=== PATIENT | male | born 1955 | race Caucasian/White ===

== ENCOUNTER → 2019-11-11 | Outpatient (CLI) | payer OTHER | END | disposition home or self-care (01) | LOC: LABWHC1 09:05 | PROVIDERS: ATTEND Internal Medicine | DX: R50.9 Fever, unspecified (principal); R19.7 Diarrhea, unspecified; R52 Pain, unspecified; Z11.59 Encounter for screening for other viral diseases | CPT/HCPCS: U0003; C9803 ==

== ENCOUNTER 2021-06-19 10:33 | Inpatient (IN) | payer MEDICARE ==
[~2021-06-19 10:33] MED LIST: ALPRAZolam 0.25 MG TAB PO PRN; ALPRAZolam 0.5 MG TAB PO PRN; ASPIRIN 325 MG TAB PO ONE; ATORVASTATIN 80 MG TAB PO ONE; NITROGLYCERIN SL TABS 0.4 MG TAB SUBLINGUAL PRN
[2021-06-19] MEDS ORDERED: SODIUM CHLORIDE 0.9% 1,000 ML IV ONE (10:46)
[2021-06-19] MEDS ORDERED: LIDOCAINE 1% INJ 10MG/ML (20 ML MDV) ONE (12:05)
[2021-06-19] MEDS ORDERED: VERAPAMIL 2.5 MG/ML 2 ML AMP ONE (12:05)
[2021-06-19] MEDS ORDERED: HEPARIN SODIUM 1,000 UN/ML (10ML VL) ONE (12:20)
[2021-06-19] MEDS ORDERED: MIDAZOLAM 2 MG/2 ML VIAL IVP ONE (12:29)
[2021-06-19] MEDS ORDERED: LIDOCAINE 1% INJ 10MG/ML (10 ML MDV) SQ ONE (12:30)
[2021-06-19] MEDS ORDERED: VERAPAMIL SYRINGE (5 MG/10 ML) INTRAARTER ONE (12:31)
[2021-06-19] MEDS ORDERED: HEPARIN SODIUM 1,000 UN/ML (10ML VL) IV ONE (12:32)
[2021-06-19] MEDS ORDERED: IOPAMIDOL-370 125ML BTL INJ ONE (12:42)
[2021-06-19] MEDS ORDERED: FUROSEMIDE 20 MG TAB PO PRN (12:49)
[2021-06-19] MEDS ORDERED: BACLOFEN 10 MG TAB PO PRN (12:49)
[2021-06-19] MEDS ORDERED: RX INFO: IV CONTRAST WAS GIVEN 1 EACH MISC MISCELLANE PRN (12:50)
--- NOTE | 2021-06-19 12:50 | P.PCN ---
Date of Procedure: 06/19/21 Operative Findings: CARDIAC CATHETERIZATION PERFORMING PHYSICIAN: Suman Keane MD, RPVI PROCEDURE PERFORMED: 1. Selective right and left coronary angiogram 2. Left heart catheterization INDICATION: This is a 65-year-old gentleman with CAD and prior stenting of the LAD and RCA to have intermittent episodes of chest discomfort. He underwent myocardial perfusion imaging and that revealed reversible defect involving the basal lateral wall of the LV rate in the light of that a heart catheterization was advised COMPLICATION: None APPROACH: Right radial artery LEVEL OF SEDATION: Moderate with a sedation length of 14 minutes PROCEDURE DESCRIPTION: After obtaining an informed consent, the patient was brought to cardiac mill laborer. Local anesthesia was performed using lidocaine subcutaneously. The right radial artery was cannulated using Seldinger technique, the guidewire passed easily, following that we advanced a 5-Filipino sheath dilator assembly, the wire and dilator were removed and sheath was flushed. Following that, 2 mg of verapamil along with 5000 unit heparin were given. Selective right and left coronary angiogram using a 6-Filipino JR4 and JL 3.5 catheters. Following that we did left heart catheterization using 6-Filipino pigtail catheter. The procedure was completed there was no complication. SELECTIVE CORONARY ANGIOGRAM: The right coronary artery: Is a large caliber vessel and a dominant vessel. The RCA is heavily calcified. The mid RCA stented and the stent is patent. The proximal RCA has a tubular lesion appeared to be extremely calcified and eccentric in the range of 70-80%. The RCA distally bifurcates into PDA and PLV branches and both appeared to have mild diffuse disease Left main: Appeared to have mild disease only. Bifurcates into a small left circumflex and left anterior descending artery The left circumflex: Is a small-caliber vessel. Its and on dominant vessel. The left circumflex proximally gives rises to a large OM branch which appeared to be angiographically normal. The left anterior descending artery: Is a large caliber vessel. The LAD proximally appeared to have mild disease only. The LAD proximally is a stented and the stent appeared to be patent. The LAD proximally gives rise to a large diagonal branch which has an ostial lesion appeared to be in the range of 50%. The mid and distal LAD appeared to be angiographically normal. HEMODYNAMICS: The LVEDP was about 12 mmHg without significant gradient across aortic valve CONCLUSION: 1. Calcified right and left coronary system 2. Patent stent in the proximal left anterior descending artery 3. Severe disease involving the proximal RCA. The mid RCA stent appeared to be patent POSTPROCEDURE MANAGEMENT: Atherectomy and STAVE BLOCK ROLLER with stenting of the RCA to be performed in the next 24 hours
[2021-06-19] MEDS: SODIUM CHLORIDE 0.9% 1,000 ML in EMPTY BAG 1 BAG IV SCH ×3 (15:52→21:31)
[2021-06-19] MEDS: SODIUM CHLORIDE 0.9% 1,000 ML IV SCH (16:27)
[2021-06-19] MEDS: MAGNESIUM OXIDE 400 MG TAB PO SCH (21:25)
[2021-06-19] MEDS: VALSARTAN 80 MG TAB PO SCH (21:31)
[2021-06-20] MEDS: SODIUM CHLORIDE 0.9% 1,000 ML IV SCH (04:54)
[2021-06-20] MEDS: SODIUM CHLORIDE 0.9% 1,000 ML in EMPTY BAG 1 BAG IV SCH ×3 (05:15→16:08)
[2021-06-20] MEDS: LEVOTHYROXINE 100 MCG TAB PO SCH (05:15)
[2021-06-20] MEDS: LEVOTHYROXINE 75 MCG TAB PO SCH (05:16)
[2021-06-20] MEDS ORDERED: HEPARIN SODIUM,PORCINE 2,500 UNIT in SODIUM CHLORIDE 0.9% 250 ML IRRIGATION PRN (07:00)
[2021-06-20] MEDS ORDERED: HEPARIN SODIUM,PORCINE 10,000 UNIT in SODIUM CHLORIDE 0.9% 1,000 ML IRRIGATION PRN (07:00)
[2021-06-20 07:03] LABS: Basophils # (A) 0.1 k/uL (0-0.2); Basophils % (A) 1 %; Eosinophils # (A) 0.5 k/uL (0-0.7); Eosinophils % (A) 6 %; HCT 40.5 % (39.0-53.0); HGB 13.1 gm/dL (13.0-17.5); Lymphocytes # (A) 2.2 k/uL (1.0-4.8); Lymphocytes % (A) 28 %; MCHC 32.3 g/dL (31.0-37.0); MCV 95.9 fL (80.0-100.0); Mean Platelet Volume 6.8; Monocytes # (A) 0.6 k/uL (0-1.0); Monocytes % (A) 8 %; Neutrophils # (A) 4.4 k/uL (1.3-7.7); Neutrophils % (A) 55 %; Platelet Count 350 k/uL (150-450); RBC 4.22 m/uL (4.30-5.90); RDW 13.7 % (11.5-15.5); WBC 7.9 k/uL (3.8-10.6)
[2021-06-20 07:19] LABS: African American GFR (CKD) >90 (>60 ml/min/1.73 sqM); Anion Gap 6 mmol/L; Blood Urea Nitrogen 14 mg/dL (9-20); Calcium 9.2 mg/dL (8.4-10.2); Carbon Dioxide 26 mmol/L (22-30); Chloride 102 mmol/L (98-107); Glucose 112 mg/dL (74-99); Non-African American GFR(CKD) 79 (>60 ml/min/1.73 sqM); Potassium 4.9 mmol/L (3.5-5.1); Sodium 134 mmol/L (137-145)
[2021-06-20] MEDS: amLODIPine 10 MG TAB PO SCH (07:34)
[2021-06-20] MEDS: TAMSULOSIN 0.4 MG CAP.ER.24H PO SCH (07:34)
[2021-06-20] MEDS: METOPROLOL SUCCINATE (ER) 50 MG TAB.ER.24H PO SCH (07:34)
[2021-06-20] MEDS: hydroCHLOROthiazide 25 MG TAB PO SCH (07:34)
[2021-06-20] MEDS: NON FORMULARY DRUG (Buprenorphine Hcl/Naloxone Hcl [Suboxone 8 Mg-2 Mg Sl Film] 1 EACH Fil SUBLINGUAL SCH (07:34)
[2021-06-20] MEDS: ASPIRIN 325 MG TAB PO SCH (07:34)
[2021-06-20] MEDS ORDERED: VERAPAMIL 2.5 MG/ML 2 ML AMP ONE (10:12)
[2021-06-20] MEDS ORDERED: HEPARIN SODIUM 1,000 UN/ML (10ML VL) ONE (10:12)
[2021-06-20] MEDS ORDERED: LIDOCAINE 1% INJ 10MG/ML (20 ML MDV) ONE (10:12)
[2021-06-20] MEDS ORDERED: IV FLUID CONTINUATION 800 ML IV ONE (10:45)
[2021-06-20] MEDS ORDERED: MIDAZOLAM 2 MG/2 ML VIAL IVP ONE (10:50)
[2021-06-20] MEDS ORDERED: fentaNYL (PF) 50 MCG/ML 2 ML AMP ONE (10:51)
[2021-06-20] MEDS ORDERED: fentaNYL (PF) 50 MCG/ML 2 ML AMP IVP ONE (10:53)
[2021-06-20] MEDS: LIDOCAINE 1% INJ 10MG/ML (20 ML MDV) SQ ONE ×2 (10:54→10:58)
[2021-06-20] MEDS ORDERED: niCARdipine 25 MG/10 ML VIAL ONE (10:55)
[2021-06-20] MEDS ORDERED: VERAPAMIL SYRINGE (5 MG/10 ML) INTRAARTER ONE (10:58)
[2021-06-20] MEDS ORDERED: HEPARIN SODIUM 1,000 UN/ML (10ML VL) IVP ONE (11:02)
[2021-06-20] MEDS ORDERED: HYDROmorphone 1 MG/ML 1 ML SYRINGE ONE (11:10)
[2021-06-20] MEDS ORDERED: HYDROmorphone 1 MG/ML 1 ML SYRINGE IVP ONE (11:11)
[2021-06-20] MEDS: NITROGLYCERIN 1000MCG/10ML SYRINGE INTRACORON ONE ×2 (11:19→11:28)
[2021-06-20] MEDS: niCARdipine Syringe (1,000 mcg/10 mL) INTRACORON ONE ×2 (11:20→11:28)
[2021-06-20] MEDS ORDERED: PRASUGREL 10 MG TAB ONE ×2 (11:30)
[2021-06-20] MEDS ORDERED: PRASUGREL 10 MG TAB PO ONE (11:37)
[2021-06-20] MEDS ORDERED: IOPAMIDOL-370 125ML BTL INJ ONE (11:37)
[2021-06-20] MEDS ORDERED: ATROPINE SULFATE 0.1 MG/ML 10ML SYRINGE IV PRN (11:53)
[2021-06-20] MEDS ORDERED: RX INFO: IV CONTRAST WAS GIVEN 1 EACH MISC MISCELLANE PRN (11:53)
[2021-06-20] MEDS ORDERED: NITROGLYCERIN SL TABS 0.4 MG TAB SUBLINGUAL PRN (11:53)
[2021-06-20] MEDS ORDERED: ZOLPIDEM 5 MG TAB PO PRN (11:53)
[2021-06-20] MEDS ORDERED: MAG HYDROX/AL HYDROX/SIMETH 30 ML CUP PO PRN (11:53)
[2021-06-20] MEDS ORDERED: SODIUM CHLORIDE 0.9% 1,000 ML in EMPTY BAG 1 BAG IV SCH (12:00)
--- NOTE | 2021-06-20 12:04 | P.PCN ---
Date of Procedure: 06/20/21 Operative Findings: PERCUTANEOUS CORONARY INTERVENTION Performing physician Suman Keane M.D. Procedure Performed: 1. An atherectomy of the right coronary artery using the orbital atherectomy device 2. Successful stenting of the right coronary artery proximally using 4.0 x 26 mm Xience drug-eluting stent with an excellent angiographic results. 2. Placement of temporary pacemaker in the right ventricle Indication: Severe coronary artery disease involving the right coronary artery was extremely calcified and eccentric plaque was identified yesterday on a heart catheterization in this 65-year-old gentleman who is known to have CAD with prior stenting of the RCA and LAD was experiencing symptoms of chest discomfort concerning for angina Approach: Right femoral vein and the right radial artery Complications: None Level of Sedation: Moderate with a sedation length of 41 minute Procedure Discussion: Please refer to the diagnostic heart catheterization was performed yesterday. The right common femoral vein was cannulated using micropuncture technique, the micropuncture wire passed easily. Subsequently I advanced(venous pacemaker with the balloon. And her fluoroscopy guidance to the right ventricle apex. The pacer was set to be at 5 of AMP and 60 heart rate as a backup. Subsequently the right radial artery was cannulated using micropuncture technique, and a puncture wire passed easily then I placed a 6-Indian sheath in the right radial artery. I gave the patient 2 mg of verapamil I a. Anticoagulation was initiated using heparin and the patient was given 8000 use of heparin IV with continuous ACT monitoring throughout the case Subsequently I did engage the RCA using JR4 guiding catheter. The RCA initially was wired using long whisper wire. Subsequently I advanced a Viber wire as a tank wire and I advanced a Viber wire all the way to the distal right coronary artery subsequently the whisper wire was pulled out. After that I did atherectomy of the right coronary artery using the orbital atherectomy device with 3 runs and a low speed. After that balloon angioplasty was performed initially using 3.5 mm balloon. I deployed after that 4.0 x 26 [place] stent where the stent was positioned under fluoroscopy guidance and deployed under 16 desirae for 20 seconds. The following angiogram showed an excellent angiographic results and the procedure was completed without complication By the end the transvenous pacer was pulled out. Postprocedure Management: 1. Dual antiplatelet therapy 2. Aggressive cholesterol control 3. Risk factors modification
[2021-06-20] MEDS ORDERED: ATORVASTATIN 80 MG TAB PO SCH (21:00)
[2021-06-20] MEDS: VALSARTAN 80 MG TAB PO SCH (21:09)
[2021-06-20] MEDS: MAGNESIUM OXIDE 400 MG TAB PO SCH (21:09)
[2021-06-21 03:25] VITALS: TEMP 98.1
[2021-06-21] MEDS: SODIUM CHLORIDE 0.9% 1,000 ML in EMPTY BAG 1 BAG IV SCH (04:39)
[2021-06-21] MEDS: LEVOTHYROXINE 75 MCG TAB PO SCH (06:09)
[2021-06-21] MEDS: LEVOTHYROXINE 100 MCG TAB PO SCH (06:09)
[2021-06-21 06:59] VITALS: RESP 18
--- NOTE | 2021-06-21 08:19 | P.DS ---
Providers Date of admission: 06/21/21 07:58 Attending physician: Suman Keane Consults: 06/20/21 11:53 Consult Physician Routine Consulting Provider: [facility] Consult Reason/Comments: Post Interventional patient Do you want consulting provider notified?: Already Contacted Primary care physician: [facility] Course: Patient is a pleasant 65-year-old gentleman who underwent yesterday an atherectomy and stenting right coronary artery from right radial approach. He was seen this morning. The patient is asymptomatic from a cardiovascular standpoint. He is going to be discharged home on dual antiplatelet therapy and I'll follow- up with the patient next week Plan - Discharge Summary Discharge Rx Participant: No New Discharge Prescriptions: New Prasugrel [Effient] 10 mg PO DAILY #90 tab Continue Baclofen [Lioresal] 20 mg PO BID PRN PRN Reason: Muscle Spasm Atorvastatin [Lipitor] 80 mg PO HS #90 tab Aspirin 325 mg PO DAILY #30 tab Metoprolol Succinate (ER) [Toprol XL] 50 mg PO DAILY hydroCHLOROthiazide 25 mg PO DAILY Buprenorphine HCl/Naloxone HCl [Suboxone 8 mg-2 mg Sl Film] 1 each SL DAILY Tamsulosin [Flomax] 0.4 mg PO DAILY Magnesium Oxide 400 mg PO HS Valsartan [Diovan] 80 mg PO HS Furosemide [Lasix] 20 mg PO DAILY PRN PRN Reason: Edema amLODIPine [Norvasc] 10 mg PO DAILY Levothyroxine Sodium [Synthroid] 175 mcg PO DAILY Discharge Medication List Baclofen [Lioresal] 20 mg PO BID PRN 08/28/15 [History] Aspirin 325 mg PO DAILY #30 tab 08/30/15 [Rx] Atorvastatin [Lipitor] 80 mg PO HS #90 tab 08/30/15 [Rx] Buprenorphine HCl/Naloxone HCl [Suboxone 8 mg-2 mg Sl Film] 1 each SL DAILY 06/15/21 [History] Furosemide [Lasix] 20 mg PO DAILY PRN 06/15/21 [History] Levothyroxine Sodium [Synthroid] 175 mcg PO DAILY 06/15/21 [History] Magnesium Oxide 400 mg PO HS 06/15/21 [History] Metoprolol Succinate (ER) [Toprol XL] 50 mg PO DAILY 06/15/21 [History] Tamsulosin [Flomax] 0.4 mg PO DAILY 06/15/21 [History] Valsartan [Diovan] 80 mg PO HS 06/15/21 [History] amLODIPine [Norvasc] 10 mg PO DAILY 06/15/21 [History] hydroCHLOROthiazide 25 mg PO DAILY 06/15/21 [History] Prasugrel [Effient] 10 mg PO DAILY #90 tab 06/21/21 [Rx] Follow up Appointment(s)/Referral(s): Suman Keane MD [STAFF PHYSICIAN] - 06/26/21 4:15 pm (June 26 at 4:15 PM is follow up appointment at [facility].) Patient Instructions/Handouts: After Radial Heart Catheterization (GEN), Procedural Sedation (ED), Left Heart Catheterization (DC) Activity/Diet/Wound Care/Special Instructions: No driving today or tomorrow. Remove dressing tomorrow afternoon, ok to shower but no baths, pools, hot tubs, soaking wrist for five days. No need to apply dressing, ointments, powders to site. Leave open to the air. Avoid bending, flexing, pushing, pulling, lifting greater than 5 lbs for 5days. If puncture site bleeds, apply firm direct pressure and return to ER. Signs of infections IE: fever, rash, drainage from puncture site, swelling co ntact doctor for further orders/return to ER.
[2021-06-21 08:26] LABS: Basophils # (A) 0.1 k/uL (0-0.2); Basophils % (A) 1 %; Eosinophils # (A) 0.3 k/uL (0-0.7); Eosinophils % (A) 3 %; HCT 44.1 % (39.0-53.0); HGB 14.2 gm/dL (13.0-17.5); Lymphocytes # (A) 2.4 k/uL (1.0-4.8); Lymphocytes % (A) 24 %; MCHC 32.3 g/dL (31.0-37.0); MCV 96.2 fL (80.0-100.0); Mean Platelet Volume 6.6; Monocytes # (A) 0.6 k/uL (0-1.0); Monocytes % (A) 6 %; Neutrophils # (A) 6.3 k/uL (1.3-7.7); Neutrophils % (A) 63 %; Platelet Count 343 k/uL (150-450); RBC 4.59 m/uL (4.30-5.90); RDW 13.7 % (11.5-15.5)
[2021-06-21] MEDS: METOPROLOL SUCCINATE (ER) 50 MG TAB.ER.24H PO SCH (08:30)
[2021-06-21] MEDS: hydroCHLOROthiazide 25 MG TAB PO SCH (08:30)
[2021-06-21] MEDS: TAMSULOSIN 0.4 MG CAP.ER.24H PO SCH (08:30)
[2021-06-21] MEDS: ASPIRIN 325 MG TAB PO SCH (08:30)
[2021-06-21] MEDS: amLODIPine 10 MG TAB PO SCH (08:30)
[2021-06-21] MEDS: NON FORMULARY DRUG (Buprenorphine Hcl/Naloxone Hcl [Suboxone 8 Mg-2 Mg Sl Film] 1 EACH Fil SUBLINGUAL SCH (08:36)
[2021-06-21 08:37] VITALS: BP 129/78; PULSE 90
[2021-06-21 08:45] LABS: African American GFR (CKD) >90 (>60 ml/min/1.73 sqM); Anion Gap 8 mmol/L; Blood Urea Nitrogen 13 mg/dL (9-20); Calcium 9.8 mg/dL (8.4-10.2); Carbon Dioxide 26 mmol/L (22-30); Chloride 100 mmol/L (98-107); Glucose 117 mg/dL (74-99); Non-African American GFR(CKD) 79 (>60 ml/min/1.73 sqM); Potassium 4.8 mmol/L (3.5-5.1); Sodium 134 mmol/L (137-145)
[2021-06-21] MEDS ORDERED: PRASUGREL 10 MG TAB PO SCH (09:00)
[2021-06-21 10:39] VITALS: BMI 42.2
== END 2021-06-21 11:20 | disposition home or self-care (01) | DRG 247 ==
LOC: CATHCVL 10:33 → 6NMEDSUR 12:43 → CATHCVL 06-21 07:39 → 6NMEDSUR 06-21 07:58
PROVIDERS: ADMIT Internal Medicine Interventional Cardiology; ATTEND Internal Medicine Interventional Cardiology
PROC: 4A023N7 Measurement of Cardiac Sampling and Pressure, Left Heart, Percutaneous Approach (ICD-10-PCS; 2021-06-19)
PROC: B2111ZZ Fluoroscopy of Multiple Coronary Arteries using Low Osmolar Contrast (ICD-10-PCS; 2021-06-19)
PROC: 02C03Z7 Extirpation of Matter from Coronary Artery, One Artery, Orbital Atherectomy Technique, Percutaneous Approach (ICD-10-PCS; principal; 2021-06-20 07:30)
PROC: 5A1223Z Performance of Cardiac Pacing, Continuous (ICD-10-PCS; principal; 2021-06-20 07:30)
PROC: 027034Z Dilation of Coronary Artery, One Artery with Drug-eluting Intraluminal Device, Percutaneous Approach (ICD-10-PCS; principal; 2021-06-20 07:30)
DX: I25.10 Atherosclerotic heart disease of native coronary artery without angina pectoris (principal); Z68.41 Body mass index [BMI] 40.0-44.9, adult; E66.9 Obesity, unspecified; Z71.3 Dietary counseling and surveillance; I10 Essential (primary) hypertension; E78.5 Hyperlipidemia, unspecified; Z20.822 Contact with and (suspected) exposure to COVID-19; Z79.899 Other long term (current) drug therapy; Z95.5 Presence of coronary angioplasty implant and graft
CPT/HCPCS: 80048; 85025; 87635; 93458

== ENCOUNTER 2023-02-23 20:44 | Inpatient (IN) | payer MEDICARE, OTHER ==
[2023-02-23 21:40] LABS: Basophils % (A) 0 %; Eosinophils # (A) 0.1 k/uL (0-0.7); Eosinophils % (A) 1 %; HCT 46.1 % (39.0-53.0); HGB 15.4 gm/dL (13.0-17.5); Lymphocytes # (A) 2.3 k/uL (1.0-4.8); Lymphocytes % (A) 26 %; MCH 33.4 pg (25.0-35.0); MCHC 33.4 g/dL (31.0-37.0); MCV 100.2 fL (80.0-100.0); Macrocytosis Slight; Mean Platelet Volume 7.1; Monocytes # (A) 0.5 k/uL (0-1.0); Monocytes % (A) 6 %; Neutrophils # (A) 5.8 k/uL (1.3-7.7); Neutrophils % (A) 66 %; Platelet Count 313 k/uL (150-450); RBC 4.61 m/uL (4.30-5.90); RDW 14.1 % (11.5-15.5); WBC 8.8 k/uL (3.8-10.6)
--- NOTE | 2023-02-23 21:45 | ED ---
Chest Pain HPI - General Chief Complaint: Chest Pain Stated Complaint: Chest Pain Time Seen by Provider: 02/23/23 20:50 Source: patient, EMS Mode of arrival: EMS Limitations: no limitations - History of Present Illness Initial Comments: 67-year-old male with past medical history of coronary artery disease who presents to the emergency department from [facility] is a transfer. Patient began having chest pain after an altercation with police. Patient was taken into [facility]. First troponin was negative. EKG was normal. Patient transferred to our facility for further cardiac evaluation. Patient states that he continues to have chest pain. He was given 4 aspirin at the outside facility as well as a dose of Toradol. He does admit to 2 previous cardiac stents. He follows with Dr. Keane. Denies fevers chills or cough. No shortness of breath. Patient takes prausagrel however states that he has not had his medications in 3 days since he has been incarcerated. No other alleviating, precipitating or modifying factors - Related Data Home Medications Medication Instructions Recorded Confirmed Baclofen [Lioresal] 20 mg PO BID PRN 08/28/15 06/15/21 Buprenorphine HCl/Naloxone HCl 1 each SL DAILY 06/15/21 06/19/21 [Suboxone 8 mg-2 mg Sl Film] Furosemide [Lasix] 20 mg PO DAILY PRN 06/15/21 06/19/21 Levothyroxine Sodium [Synthroid] 175 mcg PO DAILY 06/15/21 06/19/21 Magnesium Oxide 400 mg PO HS 06/15/21 06/19/21 Metoprolol Succinate (ER) [Toprol 50 mg PO DAILY 06/15/21 06/19/21 XL] Tamsulosin [Flomax] 0.4 mg PO DAILY 06/15/21 06/19/21 Valsartan [Diovan] 80 mg PO HS 06/15/21 06/19/21 amLODIPine [Norvasc] 10 mg PO DAILY 06/15/21 06/19/21 hydroCHLOROthiazide 25 mg PO DAILY 06/15/21 06/19/21 Previous Rx's Medication Instructions Recorded Aspirin 325 mg PO DAILY #30 tab 08/30/15 Atorvastatin [Lipitor] 80 mg PO HS #90 tab 08/30/15 Prasugrel [Effient] 10 mg PO DAILY #90 tab 06/21/21 Allergies Allergy/AdvReac Type Severity Reaction Status Date / Time No Known Allergies Allergy Verified 02/23/23 20:54 Review of Systems ROS Statement: Those systems with pertinent positive or pertinent negative responses have been documented in the HPI. ROS Other: All systems not noted in ROS Statement are negative. 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 insomnia, History of Any Multi-Drug Resistant Organisms: MRSA Date of last positivie culture/infection: 2011 MDRO Source:: rt foot Past Surgical History: Back Surgery, Heart Catheterization With Stent, Orthopedic Surgery Additional Past Surgical History / Comment(s): left knee arthroscopy, picc line insertion since removed for ABX for MRSA, one cardiac stent Past Anesthesia/Blood Transfusion Reactions: No Reported Reaction Date of Last Stent Placement:: 08/29/15 Past Psychological History: No Psychological Hx Reported Smoking Status: Never smoker Past Alcohol Use History: None Reported Past Drug Use History: None Reported - Past Family History Father Family Medical History: Cancer Additional Family Medical History / Comment(s): Father of lung cancer at age 76 yrs. Mother Family Medical History: Myocardial Infarction ([place]) Additional Family Medical History / Comment(s): . Brother(s) Family Medical History: Cancer General Exam Limitations: no limitations General appearance: alert, in no apparent distress Head exam: Present: atraumatic, normocephalic, normal inspection Eye exam: Present: normal appearance, PERRL, EOMI. Absent: scleral icterus, conjunctival injection, periorbital swelling ENT exam: Present: normal exam, mucous membranes moist Neck exam: Present: normal inspection. Absent: tenderness, meningismus, lymphadenopathy Respiratory exam: Present: normal lung sounds bilaterally. Absent: respiratory distress, wheezes, rales, rhonchi, stridor Cardiovascular Exam: Present: regular rate, normal rhythm, normal heart sounds. Absent: systolic murmur, diastolic murmur, rubs, gallop, clicks GI/Abdominal exam: Present: soft, normal bowel sounds. Absent: distended, tenderness, guarding, rebound, rigid Extremities exam: Present: normal inspection, full ROM, normal capillary refill. Absent: tenderness, pedal edema, joint swelling, calf tenderness Back exam: Present: normal inspection Neurological exam: Present: alert, oriented X3, CN II-XII intact Psychiatric exam: Present: normal affect, normal mood Skin exam: Present: warm, dry, intact, normal color. Absent: rash Course Vital Signs 02/23/23 02/23/23 02/24/23 20:48 23:59 00:15 Temperature 97.8 F 97.8 F 97.6 F Pulse Rate 69 75 Pulse Rate [ 66 Pulse Oximetery ] Respiratory 20 20 16 Rate Blood Pressure 147/78 139/84 Blood Pressure 160/87 [Left Arm] O2 Sat by Pulse 99 97 96 Oximetry Chest Pain MDM - MDM Was pt. sent in by a medical professional or institution (, PA, PLACEMENT MANAGER, urgent care, hospital, or detention...) When possible be specific @ -[facility] Did you speak to anyone other than the patient for history (EMS, parent, family, police, friend...)? What history was obtained from this source @ -Spoke with transferring doc Did you review nursing and triage notes (agree or disagree)? Why? @ -I reviewed and agree with nursing and triage notes Were old charts reviewed (outside hosp., previous admission, EMS record, old EKG, old radiological studies, urgent care reports/EKG's, detention records)? Report findings @ -Reviewed records from [facility] Differential Diagnosis (chest pain, altered mental status, abdominal pain women, abdominal pain men, vaginal bleeding, weakness, fever, dyspnea, syncope, headache, dizziness, GI bleed, back pain, seizure, CVA, palpatations, mental health, musculoskeletal)? @ -Differential Chest Pain: Stable Angina, Unstable Angina, STEMI, NSTEMI Aortic Dissection, Pneumothorax, Musculoskeletal, Esophageal Spasm GERD, Cholecystitis, Pancreatitis, Zoster, this is not meant to be an all-inclusive list. EKG interpreted by me (3pts min.). @ -Yes and demonstrates sinus rhythm with a rate of 61. MI interval 165. QRS 104. QTC 411. No acute ST segment elevation or depression X-rays interpreted by me (1pt min.). @ -Yes and demonstrates no acute intrathoracic process CT interpreted by me (1pt min.). @ -None done U/S interpreted by me (1pt. min.). @ -None done What testing was considered but not performed or refused? (CT, X-rays, U/S, labs)? Why? @ -None What meds were considered but not given or refused? Why? @ -Nitro because patient refused Did you discuss the management of the patient with other professionals (professionals i.e. , PA, PLACEMENT MANAGER, lab, RT, psych nurse, social service liaison, beater engineer, teacher, strategic intelligence officer, case management director)? Give summary @ -Spoke with Dr. Verma who accepted admission Was smoking cessation discussed for >3mins.? @ -No Was critical care preformed (if so, how long)? @ -No Were there social determinants of health that impacted care today? How? (Homelessness, low income, unemployed, alcoholism, drug addiction, transportation, low edu. Level, literacy, decrease access to med. care, prison, rehab)? @ -Patient is incarcerated Was there de-escalation of care discussed even if they declined (Discuss DNR or withdrawal of care, Hospice)? DNR status @ -No What co-morbidities impacted this encounter? (DM, HTN, Smoking, COPD, CAD, Cancer, CVA, ARF, Chemo, Hep., AIDS, mental health diagnosis, sleep apnea, morbid obesity)? @ -Coronary artery disease Was patient admitted / discharged? Hospital course, mention meds given and route, prescriptions, significant lab abnormalities, going to OR and other pertinent info. @ -Upon arrival patient was placed into room 1. Thorough history and physical exam was performed. I did review records from [facility]. Repeat cardiac enzyme was performed and continues to be negative. Patient offered nitro however refused. Patient will be admitted for cardiac evaluation. He remains in stable condition and was taken to the floor Undiagnosed new problem with uncertain prognosis? @ -Yes Drug Therapy requiring intensive monitoring for toxicity (Heparin, Nitro, Insulin, Cardizem)? @ -No Were any procedures done? @ -No Diagnosis/symptom? @ -Acute chest pain, history of atherosclerotic coronary artery disease Acute, or Chronic, or Acute on Chronic? @ -Acute Uncomplicated (without systemic symptoms) or Complicated (systemic symptoms)? @ -Complicated Side effects of treatment? @ -No Exacerbation, Progression, or Severe Exacerbation? @ -No Poses a threat to life or bodily function? How? (Chest pain, [place], [place], pneumonia, PE, COPD, DKA, ARF, appy, cholecystitis, CVA, Diverticulitis, Homicidal, Suicidal, threat to staff... and all critical care pts) @ -Yes patient has active chest pain Disposition Clinical Impression: Chest pain Disposition: ADMITTED IP TO THIS HOSP Condition: Stable Is patient prescribed a controlled substance at d/c from ED?: No Time of Disposition: 22:52 Decision to Admit Reason: Admit from EC Decision Date: 02/23/23 Decision Time: 22:52
[2023-02-23 21:49] LABS: Prothrombin Time 10.9 sec (10.0-12.5)
--- NOTE | 2023-02-23 21:52 | XR ---
EXAMINATION TYPE: XR chest 2V DATE OF EXAM: 02/23/2023 9:48 PM CLINICAL INDICATION:Male, 67 years old with history of Chest Pain; [facility] COMPARISON: None TECHNIQUE: XR chest 2V Frontal and lateral views of the chest. FINDINGS: Lungs/Pleura: There is flattening of the diaphragm with increased lucency of the lungs. No evidence o f pneumothorax, pleural effusion or focal consolidation. Pulmonary vascularity: Unremarkable. Heart/mediastinum: Cardiomediastinal silhouette is unremarkable. Musculoskeletal: No acute osseous pathology. IMPRESSION: 1. No acute cardiopulmonary disease process. 2. COPD changes.
[2023-02-23 22:05] LABS: Partial Thromboplastin Time 21.1 sec (22.0-30.0)
[2023-02-23] MEDS ORDERED: NALOXONE 0.4 MG/ML 1 ML VIAL IV PRN (22:52)
[2023-02-23] MEDS ORDERED: ACETAMINOPHEN TAB 325 MG TAB PO PRN (22:52)
[2023-02-23 23:08] LABS: ALT 20 U/L (4-49); AST 31 U/L (17-59); African American GFR (CKD) >90 (>60 ml/min/1.73 sqM); Alkaline Phosphatase 57 U/L (38-126); Anion Gap 10 mmol/L; Blood Urea Nitrogen 10 mg/dL (9-20); Calcium 9.4 mg/dL (8.4-10.2); Carbon Dioxide 25 mmol/L (22-30); Chloride 101 mmol/L (98-107); Glucose 86 mg/dL (74-99); Magnesium 1.7 mg/dL (1.6-2.3); Non-African American GFR(CKD) 85 (>60 ml/min/1.73 sqM); Sodium 136 mmol/L (137-145); Total Bilirubin 0.8 mg/dL (0.2-1.3); Total Protein 7.5 g/dL (6.3-8.2)
[2023-02-24 03:47] LABS: Basophils % (A) 0 %; Eosinophils # (A) 0.1 k/uL (0-0.7); Eosinophils % (A) 1 %; HCT 45.5 % (39.0-53.0); HGB 15.1 gm/dL (13.0-17.5); Lymphocytes # (A) 2.4 k/uL (1.0-4.8); Lymphocytes % (A) 30 %; MCH 32.6 pg (25.0-35.0); MCV 98.8 fL (80.0-100.0); Mean Platelet Volume 6.9; Monocytes # (A) 0.5 k/uL (0-1.0); Monocytes % (A) 6 %; Neutrophils # (A) 4.9 k/uL (1.3-7.7); Neutrophils % (A) 60 %; Platelet Count 293 k/uL (150-450); RBC 4.61 m/uL (4.30-5.90); RDW 14.2 % (11.5-15.5); WBC 8.2 k/uL (3.8-10.6)
[2023-02-24 04:40] LABS: African American GFR (CKD) >90 (>60 ml/min/1.73 sqM); Anion Gap 8 mmol/L; Blood Urea Nitrogen 11 mg/dL (9-20); Calcium 9.2 mg/dL (8.4-10.2); Carbon Dioxide 25 mmol/L (22-30); Chloride 103 mmol/L (98-107); Glucose 86 mg/dL (74-99); Non-African American GFR(CKD) >90 (>60 ml/min/1.73 sqM); Potassium 3.4 mmol/L (3.5-5.1); Sodium 136 mmol/L (137-145)
[2023-02-24] MEDS ORDERED: AMINOPHYLLINE 500 MG/20 ML VIAL IV PRN (07:20)
[2023-02-24] MEDS ORDERED: CAFFEINE CITRATE 60 MG/3 ML VIAL IV PRN (07:20)
[2023-02-24] MEDS ORDERED: REGADENOSON 0.4 MG/5 ML SYRINGE IV PRN (07:20)
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
--- NOTE | 2023-02-24 11:14 | CA ---
Lexiscan Nuclear Stress Test Report Name: Jose Valentine Exam Date: 02/24/2023 10:32 Exam Location: [facility] Stress Ht (in): 72 Wt (lb): 240 BSA: 2.30 Ordering Phys: Ricardo Zavala MD Referring Phys: RA, Technologist: Jorge L Walker Age: 67 Gender: M : 1955 Procedure CPT: Indications: Reflex order-Stress test ICD-10 Codes: Patient History: Medications: SEE CHART Meds past 24 hrs: Pretest Chest Pain: STRESS TEST Lexiscan Protocol Exercise Duration (min:sec): 02:[address] Depressions (mm): Angina Score: Lucia Score: Resting HR (bpm): 79 Peak HR (bpm): 106 Resting BP (mmHg): 190 / 86 Peak BP (mmHg): 213 / 84 MPHR: 152 Target HR: 129 % MPHR: 70 METS: 1.0 Total Dose: Peak Dose: Atropine: Double Product: 76533 BP Response: Stress Termination: PROTOCOL COMPLETE Stress Symptoms: NO SYMPTOMS Stress Summary: ECG ANALYSIS Resting ECG: Sinus rhythm. Normal conduction. No arrhythmias. Normal repolarization. Stress ECG: No ECG changes from baseline with Lexiscan infusion. Ventricular premature contraction. CONCLUSIONS No ECG evidence of ischemia with Lexiscan infusion. Nuclear test results to follow. Dr. Ricardo Zavala MD (Electronically Signed) Final Date: 24 February 2023 11:13
--- NOTE | 2023-02-24 11:40 | CA ---
Transthoracic Echo Report Name: Jose Valentine Age: 67 Gender: M : 1955 Exam Date: 02/24/2023 11:03 Exam Location: [facility] Echo Ht (in): 72 Wt (lb): 240 Ordering Physician: Ricardo Zavala MD ([id number]) Attending/Referring Phys: Monogram Maker Leilani Montiel RDCS Procedure CPT: Indications: CP Cardiac Hx: Technical Quality: Fair Contrast 1: Total Dose (mL): Contrast 2: Total Dose (mL): MEASUREMENTS (Male / Female) Normal Values 2D ECHO LV Diastolic Diameter PLAX 4.8 cm 4.2 - 5.9 / 3.9 - 5.3 cm LV Systolic Diameter PLAX 3.4 cm IVS Diastolic Thickness 1.3 cm 0.6 - 1.0 / 0.6 - 0.9 cm LVPW Diastolic Thickness 1.4 cm 0.6 - 1.0 / 0.6 - 0.9 cm LV Relative Wall Thickness 0.6 RV Internal Dim ED PLAX 3.9 cm LA Systolic Diameter LX 3.6 cm 3.0 - 4.0 / 2.7 - 3.8 cm LV Diastolic Volume MOD BP 86.1 cm??? 67 - 155 / 56 - 104 cm??? LV Systolic Volume MOD BP 44.2 cm??? 22 - 58 / 19 - 49 cm??? LV Ejection Fraction MOD BP 48.7 % >= 55 % LV Diastolic Volume MOD 4C 89.6 cm??? LV Systolic Volume MOD 4C 45.5 cm??? LV Ejection Fraction MOD 4C 49.3 % LV Diastolic Length 4C 8.4 cm LV Systolic Length 4C 7.7 cm LV Diastolic Volume MOD 2C 81.8 cm??? LV Systolic Volume MOD 2C 42.5 cm??? LV Ejection Fraction MOD 2C 48.0 % LV Diastolic Length 2C 8.2 cm LV Systolic Length 2C 7.6 cm LA Volume 47.4 cm??? 18 - 58 / 22 - 52 cm??? LA Volume Index 19.9 cm???/m??? 16 - 28 cm???/m??? M-MODE Aortic Root Diameter MM 3.7 cm MV E Point Septal Separation 1.1 cm AV Cusp Separation MM 2.0 cm DOPPLER AV Peak Velocity 140.5 cm/s AV Peak Gradient 7.9 mmHg MV Area PHT 4.9 cm??? Mitral E Point Velocity 52.8 cm/s Mitral A Point Velocity 106.0 cm/s Mitral E to A Ratio 0.5 MV Deceleration Time 154.0 ms MV E' Velocity 3.8 cm/s Mitral E to MV E' Ratio 13.8 FINDINGS Left Ventricle Left ventricular ejection fraction is estimated at 50-55 %. Left ventricular cavity size normal. Mildly increased left ventricular wall thickness. Borderline left ventricular systolic function. Mild inferior hypokinesis. Right Ventricle Mild right ventricular dilatation. Unable to estimate the right ventricular systolic pressure. Right Atrium Normal right atrial size. Left Atrium Normal left atrial size. Mitral Valve Structurally normal mitral valve. No mitral stenosis, or prolapse. Trace to mild mitral regurgitation. Aortic Valve Trileaflet aortic valve. Aortic valve sclerosis. Tricuspid Valve Structurally normal tricuspid valve. No tricuspid stenosis, regurgitation or prolapse. Pulmonic Valve Structurally normal pulmonic valve. Pericardium No pericardial effusion. Aorta Normal size aortic root and proximal ascending aorta. CONCLUSIONS 1. Normal left ventricle size with borderline systolic function with mild inferior wall hypokinesis 2. trace to mild mitral regurgitation Previewed by: Dr. Ricardo Zavala MD (Electronically Signed) Final Date: 24 February 2023 11:39
[2023-02-24] MEDS: METOPROLOL SUCCINATE (ER) 50 MG TAB.ER.24H PO SCH (12:09)
[2023-02-24] MEDS: ASPIRIN 81 MG PO SCH (12:10)
[2023-02-24] MEDS: hydroCHLOROthiazide 25 MG TAB PO SCH (12:10)
[2023-02-24] MEDS: TAMSULOSIN 0.4 MG CAP.ER.24H PO SCH (12:10)
[2023-02-24] MEDS: PANTOPRAZOLE 40 MG TABLET PO SCH (12:10)
[2023-02-24] MEDS: LEVOTHYROXINE 100 MCG TAB PO SCH (12:10)
[2023-02-24] MEDS: amLODIPine 10 MG TAB PO SCH (12:10)
[2023-02-24] MEDS: VALSARTAN 80 MG TAB PO SCH (12:11)
--- NOTE | 2023-02-24 12:31 | NM ---
EXAMINATION TYPE: NM stress lexiscan cardiolite DATE OF EXAM: 02/24/2023 COMPARISON: NONE CLINICAL INDICATION: Male, 67 years old with history of chest pain; TECHNIQUE: After the intravenous administration of 9.2 mCi Tc 99m Sestamibi - Cardiolite resting SPE CT images acquired 45 minutes post injection. The patient received 0.4mg Lexiscan, 23.4 mCi Tc 99m Sestamibi - Stress images obtained [address] injection FINDINGS: Review of stress and rest SPECT images demonstrates small area of stress-induced reversible ischemia involving the inferior wall. Gated analysis shows normal wall motion with an estimated left ventricu lar ejection fraction of 50 % at rest and 38% on stress correlate clinically. Report called the venu mayers's nurse 12:29 PM 02/24/2023. IMPRESSION: Positive scintigraphic evidence for reversible ischemia inferior wall of the myocardium. See above re garding ejection fraction.
[2023-02-24] MEDS ORDERED: ALPRAZolam 0.25 MG TAB PO PRN (13:08)
[2023-02-24] MEDS ORDERED: ALPRAZolam 0.5 MG TAB PO PRN (13:08)
[2023-02-24] MEDS ORDERED: ATORVASTATIN 80 MG TAB PO STA (13:08)
[2023-02-24] MEDS ORDERED: ASPIRIN 325 MG TAB PO STA (13:08)
[2023-02-24] MEDS ORDERED: NITROGLYCERIN SL TABS 0.4 MG TAB SUBLINGUAL PRN (13:08)
[2023-02-24] MEDS ORDERED: POTASSIUM CHLORIDE ER 20 MEQ TAB.ER PO STA (14:08)
[2023-02-24] MEDS ORDERED: BACLOFEN 10 MG TAB PO PRN (14:08)
[2023-02-24] MEDS: allopurinoL 300 MG TAB PO SCH (15:08)
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
[2023-02-24] MEDS: KETOROLAC 15 MG/ML 1 ML VIAL IVP PRN ×2 (15:15→22:04)
[2023-02-24] MEDS: ATORVASTATIN 80 MG TAB PO SCH (20:38)
[2023-02-24] MEDS ORDERED: BACLOFEN 10 MG TAB PO SCH (21:00)
[2023-02-25] MEDS: LEVOTHYROXINE 100 MCG TAB PO SCH (05:36)
[2023-02-25] MEDS: PANTOPRAZOLE 40 MG TABLET PO SCH (05:36)
[2023-02-25] MEDS ORDERED: HEPARIN SODIUM,PORCINE (1 ML) 2,500 UNIT in SODIUM CHLORIDE 0.9% 250 ML IRRIGATION PRN (07:00)
[2023-02-25] MEDS ORDERED: HEPARIN SODIUM,PORCINE 10,000 UNIT in SODIUM CHLORIDE 0.9% 1,000 ML IRRIGATION PRN (07:00)
[2023-02-25] MEDS: TAMSULOSIN 0.4 MG CAP.ER.24H PO SCH (08:47)
[2023-02-25] MEDS: VALSARTAN 80 MG TAB PO SCH (08:47)
[2023-02-25] MEDS: ASPIRIN 81 MG PO SCH (08:47)
[2023-02-25] MEDS: FERROUS SULFATE 325 MG TAB PO SCH (08:48)
[2023-02-25] MEDS: amLODIPine 10 MG TAB PO SCH (08:48)
[2023-02-25] MEDS: allopurinoL 300 MG TAB PO SCH ×2 (08:48→15:48)
[2023-02-25] MEDS: EZETIMIBE 10 MG TAB PO SCH (08:48)
[2023-02-25 10:46] LABS: Basophils # (A) 0.05 X 10*3/uL (0.00-0.10); Basophils % (A) 0.7 %; Eosinophils # (A) 0.11 X 10*3/uL (0.04-0.35); Eosinophils % (A) 1.5 %; HCT 43.8 % (39.6-50.0); HGB 14.7 d/dL (13.0-17.0); Lymphocytes # (A) 2.07 X 10*3/uL (0.90-5.00); Lymphocytes % (A) 28.4 %; MCH 32.1 pg (27.0-32.0); MCHC 33.6 d/dL (32.0-37.0); MCV 95.6 FL (80.0-97.0); Mean Platelet Volume 9.2 FL (9.5-12.2); Monocytes # (A) 0.66 X 10*3/uL (0.20-1.00); NRBC Per 100 WBC 0 X 10*3/uL (0.00-0.01); Neutrophils # (A) 4.39 X 10*3/uL (1.80-7.70); Neutrophils % (A) 60.1 %; Platelet Count 326 X 10*3/uL (140-440); RBC 4.58 X 10*6/uL (4.40-5.60); RDW 14.2 % (11.5-14.5)
[2023-02-25] MEDS ORDERED: HEPARIN SODIUM 1,000 UN/ML (10ML VL) ONE (12:58)
[2023-02-25] MEDS ORDERED: LIDOCAINE 1% INJ 10MG/ML (20 ML MDV) ONE (12:58)
[2023-02-25] MEDS ORDERED: VERAPAMIL 2.5 MG/ML 2 ML AMP ONE (12:58)
[2023-02-25] MEDS ORDERED: ASPIRIN 81 MG ONE (13:12)
[2023-02-25] MEDS ORDERED: IV FLUID CONTINUATION 1,000 ML IV ONE (13:13)
[2023-02-25] MEDS ORDERED: ASPIRIN 81 MG PO ONE (13:13)
[2023-02-25] MEDS ORDERED: HYDROmorphone 1 MG/ML 1 ML SYRINGE IVP ONE (13:24)
[2023-02-25] MEDS: MIDAZOLAM 2 MG/2 ML VIAL IVP ONE ×2 (13:24→13:40)
[2023-02-25 13:40] LABS: Blood Urea Nitrogen 9.8 mg/dL (9.0-27.0); Calcium 9.2 mg/dL (8.7-10.3); Carbon Dioxide 21.4 mmol/L (21.6-31.8); Chloride 100 mmol/L (96-109); Glucose 109 mg/dL (70-110); Magnesium 1.7 mg/dL (1.5-2.4); Potassium 3.7 mmol/L (3.5-5.5); Sodium 134 mmol/L (135-145)
[2023-02-25] MEDS ORDERED: LIDOCAINE 1% INJ 10MG/ML (20 ML MDV) SQ ONE (13:42)
[2023-02-25] MEDS ORDERED: VERAPAMIL SYRINGE (5 MG/10 ML) INTRAARTER ONE (13:44)
[2023-02-25] MEDS ORDERED: HEPARIN SODIUM 1,000 UN/ML (10ML VL) IV ONE (13:45)
[2023-02-25] MEDS ORDERED: IOPAMIDOL-370 100ML BTL INJ ONE (13:59)
[2023-02-25] MEDS ORDERED: RX INFO: IV CONTRAST WAS GIVEN 1 EACH MISC MISCELLANE PRN (14:03)
[2023-02-25] MEDS ORDERED: SODIUM CHLORIDE 0.9% 1,000 ML IV SCH (14:15)
[2023-02-25] MEDS: METOPROLOL SUCCINATE (ER) 50 MG TAB.ER.24H PO SCH (15:48)
[2023-02-25] MEDS: hydroCHLOROthiazide 25 MG TAB PO SCH (15:48)
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
--- NOTE | 2023-02-25 19:48 | P.PCN ---
Date of Procedure: 02/25/23 Operative Findings: Cardiac catheterization report Performing physician Suman Keane MD Procedure performed - Selective right and left coronary angiogram - iFR of the right coronary artery - Ultrasound-guided access of the right radial artery Indication Chest discomfort in this 67-year-old gentleman with a known CAD and prior stenting of the right coronary artery as well as left anterior descending ar tayla. He underwent myocardial perfusion imaging stress test that showed an anterior ischemia. Approach Right radial artery Complications None Level of sedation Moderate with sedation at length of 30 minutes Procedure description After obtaining an informed consent the patient was brought to the cardiac laboratory administrative director. The right radial artery was cannulated using micropuncture technique under ultrasound guidance the micropuncture wire passed easily then I placed a 6 Spanish sheath. I gave the patient 2 mg of verapamil intra-arterial and a total of 6000 as of heparin intravenous. Selective right and left coronary angiogram performed using JR4 and JL4 3.5 catheters. Subsequently after reviewing the angiogram I decided to do iFR of the right coronary artery After zeroing the Doppler wire and equalizing between the double wire and guiding catheter which was JR4 guiding catheter I did engage the right coronary artery and subsequently I wire it. The wire was advanced distal to the lesion in the midright coronary artery. Subsequently we did iFR and that came in to be nonischemic at 0.96. At that point the procedure was completed with no complication Selective coronary angiogram The RCA: Large caliber vessel and a dominant vessel. The RCA in the proximal and midportion is a stented. The stents are patent. In between the stents there is intermediate lesion appeared to be in the range of 60%. We did Doppler wire measurement and that came in to be nonischemic The left main: Is angiographically normal. Bifurcates into an LCx and LAD The LCx: Small caliber vessel and nondominant vessel. It gives rises into a medium size OM which appeared to have mild disease only The LAD: Is a large caliber vessel. The proximal LAD is a stented and the stent is patent. The LAD proximally gives classes into a diagonal branch which is a medium caliber vessel with ostial lesion appeared to be in the range of 60% Conclusion - Intermediate lesion involving the mid RCA. The lesion is not flow-limiting by Doppler wire - Intermediate lesion involving the ostial first diagonal branch Postprocedure management Medical treatment
[2023-02-25] MEDS: ATORVASTATIN 80 MG TAB PO SCH (20:09)
[2023-02-25] MEDS: KETOROLAC 15 MG/ML 1 ML VIAL IVP PRN (20:12)
[2023-02-26] MEDS: KETOROLAC 15 MG/ML 1 ML VIAL IVP PRN (03:01)
[2023-02-26] MEDS: LEVOTHYROXINE 100 MCG TAB PO SCH (06:02)
[2023-02-26] MEDS: PANTOPRAZOLE 40 MG TABLET PO SCH (06:10)
[2023-02-26 07:25] VITALS: BP 146/81; PULSE 77; RESP 14; TEMP 98.3
[2023-02-26] MEDS: ASPIRIN 81 MG PO SCH (08:07)
[2023-02-26] MEDS: TAMSULOSIN 0.4 MG CAP.ER.24H PO SCH (08:07)
[2023-02-26] MEDS: allopurinoL 300 MG TAB PO SCH (08:08)
[2023-02-26] MEDS: METOPROLOL SUCCINATE (ER) 50 MG TAB.ER.24H PO SCH (08:08)
[2023-02-26] MEDS: hydroCHLOROthiazide 25 MG TAB PO SCH (08:08)
[2023-02-26] MEDS: VALSARTAN 80 MG TAB PO SCH (08:08)
[2023-02-26] MEDS: amLODIPine 10 MG TAB PO SCH (08:08)
[2023-02-26] MEDS: EZETIMIBE 10 MG TAB PO SCH (08:08)
[2023-02-26] MEDS: FERROUS SULFATE 325 MG TAB PO SCH (08:08)
--- NOTE | 2023-02-26 08:31 | P.PN ---
Subjective HISTORY OF PRESENT ILLNESS: This is a 67-year-old male who underwent cardiac catheterization yesterday with Dr. Keane revealing intermediate lesion involving the mid RCA. The lesion is not flow-limiting by Doppler wire. Intermediate lesion involving the ostial first diagonal branch. Medical management was recommended. Patient examined this morning at the bedside. Patient denies any chest pain or pressure. He denies a ny shortness of breath. Denies any dizziness or lightheadedness. Patient has not been feeling to the bathroom without difficulty. Patient's vital signs are stable. Right wrist cath site with pulse present and no hematoma noted. PHYSICAL EXAM: VITAL SIGNS: Reviewed. GENERAL: Well-developed in no acute distress. NECK: Supple. No JVD or thyromegaly LUNGS: Respirations even and unlabored. Lungs essentially clear to auscultation bilaterally. HEART: Regular rate and rhythm. S1 and S2 heard. EXTREMITIES: Normal range of motion. No clubbing or cyanosis. Peripheral pulses intact. No lower extremity edema ASSESSMENT: Chest pain, status post abnormal Lexiscan, status post cardiac catheterization as above Coronary artery disease with previous stenting Hypertension Hyperlipidemia PLAN: Continue current cardiac medications Patient is stable for discharge home today from a cardiac standpoint Patient is to follow up post discharge with Dr. Keane Nurse practitioner note has been reviewed by physician. Signing provider agrees with the documented findings, assessment, and plan of care. Objective - Vital Signs Vital signs: Vital Signs Temp 98.3 F 02/26/23 07:00 Pulse 77 02/26/23 07:00 Resp 14 02/26/23 07:00 BP 146/81 02/26/23 07:00 Pulse Ox 97 02/26/23 07:00 FiO2 Intake & Output 02/25/23 02/26/23 02/26/23 18:59 06:59 18:59 Intake Total 500 Balance 500 Intake: IV 500 Other: # Voids 2 2 - Labs CBC & Chem 7: 02/25/23 06:13 02/25/23 06:13 Labs: Abnormal Lab Results - Last 24 Hours (Table) 02/25/23 02/25/23 Range/Units 06:13 06:13 MCH 32.1 H (27.0-32.0) pg MPV 9.2 L (9.5-12.2) FL Sodium 134 L (135-145) mmol/L Carbon Dioxide 21.4 L (21.6-31.8) mmol/L Anion Gap 12.60 H (4.00-12.00) mmol/L BUN/Creatinine Ratio 9.80 L (12.00-20.00) Ratio
[2023-02-26 10:00] LABS: Basophils % (A) 0 %; Eosinophils # (A) 0.1 k/uL (0-0.7); Eosinophils % (A) 1 %; HCT 46.5 % (39.0-53.0); HGB 15.3 gm/dL (13.0-17.5); Lymphocytes # (A) 1.5 k/uL (1.0-4.8); Lymphocytes % (A) 22 %; MCH 32.4 pg (25.0-35.0); MCHC 32.9 g/dL (31.0-37.0); MCV 98.5 fL (80.0-100.0); Mean Platelet Volume 7.4; Monocytes # (A) 0.5 k/uL (0-1.0); Monocytes % (A) 6 %; Neutrophils # (A) 4.8 k/uL (1.3-7.7); Neutrophils % (A) 68 %; Platelet Count 304 k/uL (150-450); RBC 4.72 m/uL (4.30-5.90); RDW 14.3 % (11.5-15.5)
[2023-02-26 10:09] LABS: African American GFR (CKD) 85 (>60 ml/min/1.73 sqM); Anion Gap 11 mmol/L; Blood Urea Nitrogen 12 mg/dL (9-20); Calcium 9.4 mg/dL (8.4-10.2); Carbon Dioxide 22 mmol/L (22-30); Chloride 102 mmol/L (98-107); Glucose 180 mg/dL (74-99); Non-African American GFR(CKD) 74 (>60 ml/min/1.73 sqM); Sodium 135 mmol/L (137-145)
--- NOTE | 2023-02-28 10:37 | P.DS ---
Providers Date of admission: 02/24/23 14:44 Expected date of discharge: 02/26/23 Attending physician: Geronimo Verma MD Consults: 02/23/23 22:52 Consult Physician Urgent Consulting Provider: [facility] Consult Reason/Comments: acute chest pain, hx ascad Do you want consulting provider notified?: Yes Primary care physician: Twin Morales [facility] Course: Final diagnosis Chest pain, ruled out ACS, troponins 3 were negative Abnormal stress test, cardiac catheterization is clear Hypokalemia proved History of angina Hypertension history Obesity with a BMI of 32.5 History of gout History of previous stenting in 2016 GI prophylaxis DVT prophylaxis Full code Discharge disposition Patient is being discharged in a stable condition with guarded prognosis to home. Patient will follow-up with Dr. Twin Morales in the outpatient setting upon discharge. Patient is to follow-up with cardiology outpatient as scheduled. Total time taken is greater than 35 minutes. Hospital course This is a 67-year-old male who was recently admitted chest pain being followed by cardiology. Patient underwent stress testing which was abnormal for signs of inducible ischemia cardiology recommending cardiac catheterization and was clear. Patient is cleared by cardiology for discharge. Patient has had medication changes in am instructed and follow-up with primary care provider this week as well as cardiology in the next 1-2 weeks. Refer to cardiology note for further HPI. Currently no reports of chest pain, shortness of breath, or palpitations. Patient is afebrile. No reports of nausea or vomiting and patient is tolerating diet. Patient will be going home today. Physical exam: Gen: This is a 67-year-old male who is awake, alert and oriented 3, well-developed, well-nourished, obese HEENT: Head is atraumatic, normocephalic. Pupils equal, round. Sclerae is anicteric. NECK: Supple. No JVD. No lymphadenopathy. No thyromegaly. LUNGS: Clear to auscultation. No wheezes or rhonchi. No intercostal retractions. HEART: Regular rate and rhythm. No murmur. ABDOMEN: Soft. Obese. Bowel sounds are present. No masses. No tenderness. EXTREMITIES: No pedal edema. No calf tenderness. NEUROLOGICAL: Patient is awake, alert and oriented x3. Cranial nerves 2 through 12 are grossly intact. Please refer to medication reconciliation sheet for a list of medications. The impression and plan of care has been dictated by Iram Lion, Nurse Practitioner as directed. Dr. Marlyn MD I have performed a history and examination and MDM of this patient, discussed the same with the dictator, and agree with the dictator's assessment and plan as written ,documented as a scribe. Based on total visit time, I have performed more than 50% of the visit. Patient Condition at Discharge: Stable Plan - Discharge Summary New Discharge Prescriptions: New Aspirin 81 mg PO DAILY #30 tab Nitroglycerin Sl Tabs [Nitrostat] 0.4 mg SUBLINGUAL Q5M PRN #20 tab PRN Reason: Chest Pain Valsartan [Diovan] 80 mg PO DAILY #30 tab hydroCHLOROthiazide [Hydrodiuril] 25 mg PO DAILY #30 tab Baclofen [Lioresal] 10 mg PO BID PRN tab PRN Reason: Pain Atorvastatin [Lipitor] 80 mg PO HS #30 tab Metoprolol Succinate (ER) [Toprol XL] 50 mg PO DAILY #30 tab Acetaminophen Tab [Tylenol] 650 mg PO Q6HR PRN tab PRN Reason: Mild Pain Or Fever > 100.5 Continue allopurinoL 300 mg PO DAILY Ezetimibe [Zetia] 10 mg PO DAILY Levothyroxine Sodium [Synthroid] 200 mcg PO DAILY Tamsulosin [Flomax] 0.8 mg PO DAILY amLODIPine [Norvasc] 10 mg PO DAILY Ferrous Sulfate [Iron (65 MG Elemental)] 325 mg PO DAILY Omeprazole [PriLOSEC] 20 mg PO DAILY Testosterone Cypionate [Depo-Testosterone] 200 mg IM Q14D Zolpidem [Ambien] 10 mg PO HS Discontinued Baclofen [Lioresal] 20 mg PO BID Aspirin 325 mg PO DAILY #30 tab Prasugrel [Effient] 10 mg PO DAILY #90 tab Enalapril [Vasotec] 20 mg PO DAILY Valsartan 320 mg PO DAILY Metoprolol Succinate [Toprol XL] 200 mg PO DAILY Discharge Medication List Tamsulosin [Flomax] 0.8 mg PO DAILY 06/15/21 [History] amLODIPine [Norvasc] 10 mg PO DAILY 06/15/21 [History] Ezetimibe [Zetia] 10 mg PO DAILY 02/24/23 [History] Ferrous Sulfate [Iron (65 MG Elemental)] 325 mg PO DAILY 02/24/23 [History] Levothyroxine Sodium [Synthroid] 200 mcg PO DAILY 02/24/23 [History] Omeprazole [PriLOSEC] 20 mg PO DAILY 02/24/23 [History] Testosterone Cypionate [Depo-Testosterone] 200 mg IM Q14D 02/24/23 [History] Zolpidem [Ambien] 10 mg PO HS 02/24/23 [History] allopurinoL 300 mg PO DAILY 02/24/23 [History] Acetaminophen Tab [Tylenol] 650 mg PO Q6HR PRN tab 02/26/23 [Rx] Aspirin 81 mg PO DAILY #30 tab 02/26/23 [Rx] Atorvastatin [Lipitor] 80 mg PO HS #30 tab 02/26/23 [Rx] Baclofen [Lioresal] 10 mg PO BID PRN tab 02/26/23 [Rx] Metoprolol Succinate (ER) [Toprol XL] 50 mg PO DAILY #30 tab 02/26/23 [Rx] Nitroglycerin Sl Tabs [Nitrostat] 0.4 mg SUBLINGUAL Q5M PRN #20 tab 02/26/23 [Rx] Valsartan [Diovan] 80 mg PO DAILY #30 tab 02/26/23 [Rx] hydroCHLOROthiazide [Hydrodiuril] 25 mg PO DAILY #30 tab 02/26/23 [Rx] Follow up Appointment(s)/Referral(s): Suman Keane MD [STAFF PHYSICIAN] - 03/07/23 10:45 am Twin Morales MD [Primary Care Provider] - 1 Week Patient Instructions/Handouts: *Surgery [facility] - After Heart Catheterization - [employer] Instructions, Heart Catheterization (DC) Activity/Diet/Wound Care/Special Instructions: Activity Limited until follow-up Follow-up with primary care provider on discharge Follow cardiology outpatient in 1-2 weeks Continue taking medications as prescribed Discharge Disposition: HOME SELF-CARE
== END 2023-02-26 10:50 | disposition home or self-care (01) | DRG 287 ==
LOC: SUPCPDRO 20:44 → EC 20:44 → 6NMEDSUR 22:52 → OBSVTOIN 02-24 14:44
PROVIDERS: ADMIT Internal Medicine; ATTEND Internal Medicine
PROC: 4A023N7 Measurement of Cardiac Sampling and Pressure, Left Heart, Percutaneous Approach (ICD-10-PCS; principal; 2023-02-26)
PROC: B2111ZZ Fluoroscopy of Multiple Coronary Arteries using Low Osmolar Contrast (ICD-10-PCS; 2023-02-26)
PROC: 4A033BC Measurement of Arterial Pressure, Coronary, Percutaneous Approach (ICD-10-PCS; 2023-02-26)
DX: I25.10 Atherosclerotic heart disease of native coronary artery without angina pectoris (principal); E87.6 Hypokalemia; M10.9 Gout, unspecified; E66.9 Obesity, unspecified; E78.5 Hyperlipidemia, unspecified; I10 Essential (primary) hypertension; Z68.32 Body mass index [BMI] 32.0-32.9, adult; Z95.5 Presence of coronary angioplasty implant and graft; Z82.49 Family history of ischemic heart disease and other diseases of the circulatory system; Z79.02 Long term (current) use of antithrombotics/antiplatelets; Z79.82 Long term (current) use of aspirin; Z79.890 Hormone replacement therapy; Z79.899 Other long term (current) drug therapy
CPT/HCPCS: 36415; 71046; 76937; 78452; 80048; 80053; 83735; 84484; 85025; 85610; 85730; 93005; 93017; 93306; 93454; 93799; 99285

== ENCOUNTER 2023-04-01 15:39 | Observation (INO) | payer MEDICARE, OTHER ==
--- NOTE | 2023-04-01 15:44 | ED ---
General Adult HPI - General Source: patient, RN notes reviewed Mode of arrival: ambulatory Limitations: no limitations <Silvestre Barger - Last Filed: 04/01/23 15:42> <Yoni Lino - Last Filed: 04/02/23 00:13> - General Stated complaint: CHEST PAIN Time Seen by Provider: 04/01/23 15:42 - History of Present Illness Initial comments: 67-year-old male presents emergency Department chief complaint chest pain., Lightheadedness, dizziness, shortness of breath. Patient states that he had a recent procedure by Dr. Keane. Patient states that he feels like he is having a heart attack. Patient denies any fevers chills no cough or cold like symptoms. (Silvestre Barger) Patient had extended stay in the emergency department waiting room. I did reevaluate this patient. He has persistent chest pain and diffuse mu sculoskeletal pain. His second troponin is mildly positive at 0.035. This level was drawn while the patient continue to wait in the emergency department waiting room. (Yoni Lino) - Related Data Home Medications Medication Instructions Recorded Confirmed Tamsulosin [Flomax] 0.8 mg PO DAILY 06/15/21 02/24/23 amLODIPine [Norvasc] 10 mg PO DAILY 06/15/21 02/24/23 Ezetimibe [Zetia] 10 mg PO DAILY 02/24/23 02/24/23 Ferrous Sulfate [Iron (65 MG 325 mg PO DAILY 02/24/23 02/24/23 Elemental)] Levothyroxine Sodium [Synthroid] 200 mcg PO DAILY 02/24/23 02/24/23 Omeprazole [PriLOSEC] 20 mg PO DAILY 02/24/23 02/24/23 Testosterone Cypionate 200 mg IM Q14D 02/24/23 02/24/23 [Depo-Testosterone] Zolpidem [Ambien] 10 mg PO HS 02/24/23 02/24/23 allopurinoL 300 mg PO DAILY 02/24/23 02/24/23 Previous Rx's Medication Instructions Recorded Acetaminophen Tab [Tylenol] 650 mg PO Q6HR PRN tab 02/26/23 Aspirin 81 mg PO DAILY #30 tab 02/26/23 Atorvastatin [Lipitor] 80 mg PO HS #30 tab 11/08/23 Baclofen [Lioresal] 10 mg PO BID PRN tab 02/26/23 Metoprolol Succinate (ER) [Toprol 50 mg PO DAILY #30 tab 02/26/23 XL] Nitroglycerin Sl Tabs [Nitrostat] 0.4 mg SUBLINGUAL Q5M PRN #20 tab 02/26/23 Valsartan [Diovan] 80 mg PO DAILY #30 tab 02/26/23 hydroCHLOROthiazide [Hydrodiuril] 25 mg PO DAILY #30 tab 02/26/23 Allergies Allergy/AdvReac Type Severity Reaction Status Date / Time No Known Allergies Allergy Verified 04/01/23 15:45 Review of Systems ROS Other: All systems not noted in ROS Statement are negative. <Silvestre Barger - Last Filed: 04/01/23 15:42> ROS Other: All systems not noted in ROS Statement are negative. <Yoni Lino - Last Filed: 04/02/23 00:13> ROS Statement: Those systems with pertinent positive or pertinent negative responses have been documented in the HPI. 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 insomnia, History of Any Multi-Drug Resistant Organisms: MRSA Date of last positivie culture/infection: 2011 MDRO Source:: rt foot Past Surgical History: Back Surgery, Heart Catheterization With Stent, Orthopedic Surgery Additional Past Surgical History / Comment(s): left knee arthroscopy, picc line insertion since removed for ABX for MRSA, one cardiac stent Past Anesthesia/Blood Transfusion Reactions: No Reported Reaction Date of Last Stent Placement:: 08/29/15 Past Psychological History: No Psychological Hx Reported Smoking Status: Never smoker Past Alcohol Use History: None Reported Past Drug Use History: None Reported - Past Family History Father Family Medical History: Cancer Additional Family Medical History / Comment(s): Father of lung cancer at age 76 yrs. Mother Family Medical History: Myocardial Infarction ([place]) Additional Family Medical History / Comment(s): . Brother(s) Family Medical History: Cancer <Silvestre Barger - Last Filed: 04/01/23 15:42> General Exam <Silvestre Barger - Last Filed: 04/01/23 15:42> - General Exam Comments Initial Comments: Visual Physical Exam Vital signs reviewed General: Well-appearing, nontoxic, no acute distress. Head: Normocephalic, atraumatic Eyes: PERRLA, EOMI ENT: Airway patent Chest: Nonlabored breathing Skin: No visual rash, normal skin tone Neuro: Alert and oriented 3 Musculoskeletal: No gross abnormalities (Silvestre Barger) Course Vital Signs 04/01/23 15:43 Temperature 97.6 F Pulse Rate 104 H Respiratory 18 Rate Blood Pressure 129/77 O2 Sat by Pulse 91 L Oximetry Medical Decision Making <Silvestre Barger - Last Filed: 04/01/23 15:42> - Lab Data Result diagrams: 04/01/23 15:59 04/01/23 15:59 <Yoni Lino - Last Filed: 04/02/23 00:13> - Medical Decision Making I completed the quick note portion of this chart signed Silvestre Barger PA-C (Silvestre Barger) Was pt. sent in by a medical professional or institution ([facility], ENERGY RATER, urgent care, hospital, or shelter...) When possible be specific @ -No Did you speak to anyone other than the patient for history (EMS, parent, family, police, friend...)? What history was obtained from this source @ -No Did you review nursing and triage notes (agree or disagree)? Why? @ -I reviewed and agree with nursing and triage notes Were old charts reviewed (outside hosp., previous admission, EMS record, old EKG, old radiological studies, urgent care reports/EKG's, shelter records)? Report findings @ -No old charts were reviewed Differential Diagnosis (chest pain, altered mental status, abdominal pain women, abdominal pain men, vaginal bleeding, weakness, fever, dyspnea, syncope, headache, dizziness, GI bleed, back pain, seizure, CVA, palpatations, mental health, musculoskeletal)? @ -[Differential Chest Pain: Stable Angina, Unstable Angina, STEMI, NSTEMI Aortic Dissection, Pneumothorax, Musculoskeletal, Esophageal Spasm GERD, Cholecystitis, Pancreatitis, Zoster, this is not meant to be an all-inclusive list. EKG interpreted by me (3pts min.). @ -Sinus rhythm with PVC rate of 92, NH interval 169, QRS duration 113, QTC [address] segment elevation. X-rays interpreted by me (1pt min.). @ -cxr negative for acute cardio pulmonary findings CT interpreted by me (1pt min.). @ -None done U/S interpreted by me (1pt. min.). @ -None done What testing was considered but not performed or refused? (CT, X-rays, U/S, l abs)? Why? @ -None What meds were considered but not given or refused? Why? @ -None Did you discuss the management of the patient with other professionals (professionals i.e. , PA, ENERGY RATER, lab, RT, psych nurse, social media marketing analyst, lawyers, teacher, program officer, heel caser)? Give summary @ -EMH Was smoking cessation discussed for >3mins.? @ -No Was critical care preformed (if so, how long)? @ -yes, 35 min Were there social determinants of health that impacted care today? How? (Homelessness, low income, unemployed, alcoholism, drug addiction, transportation, low edu. Level, literacy, decrease access to med. care, fpc, rehab)? @ -No Was there de-escalation of care discussed even if they declined (Discuss DNR or withdrawal of care, Hospice)? DNR status @ -No What co-morbidities impacted this encounter? (DM, HTN, Smoking, COPD, CAD, Cancer, CVA, ARF, Chemo, Hep., AIDS, mental health diagnosis, sleep apnea, morbid obesity)? @ -[Coronary artery disease Was patient admitted / discharged? Hospital course, mention meds given and route, prescriptions, significant lab abnormalities, going to OR and other pertinent info. @ -[67-year-old male presenting with lightheadedness, chest pain. EKG sinus without ST segment elevation. Chest x-ray is clear. Normal CBC, normal CMP, initial troponin is negative, second troponin is mildly elevated 0.035. Patient will be admitted on heparin, given aspirin emergency department. This level will continue to be trended. Cardiology placed on consult. Undiagnosed new problem with uncertain prognosis? @ -No Drug Therapy requiring intensive monitoring for toxicity (Heparin, Nitro, Insulin, Cardizem)? @ -No Were any procedures done? @ -No Diagnosis/symptom? @ -Chest pain, non-ST segment elevated SC Acute, or Chronic, or Acute on Chronic? @ -[Acute Uncomplicated (without systemic symptoms) or Complicated (systemic symptoms)? @ -default Side effects of treatment? @ -No Exacerbation, Progression, or Severe Exacerbation? @ -No Poses a threat to life or bodily function? How? (Chest pain, USA, SC, pneumonia, PE, COPD, DKA, ARF, appy, cholecystitis, CVA, Diverticulitis, Homicidal, Suicidal, threat to staff... and all critical care pts) @ Yes, ACS (Yoni Lino) - Lab Data Lab Results 04/01/23 04/01/23 04/01/23 Range/Units 15:59 15:59 15:59 WBC 7.3 (3.8-10.6) k/uL RBC 4.88 (4.30-5.90) m/uL Hgb 16.0 (13.0-17.5) gm/dL Hct 45.7 (39.0-53.0) % MCV 93.6 (80.0-100.0) fL MCH 32.8 (25.0-35.0) pg MCHC 35.1 (31.0-37.0) g/dL RDW 12.4 (11.5-15.5) % Plt Count 229 (150-450) k/uL MPV 7.4 Neutrophils % 70 % Lymphocytes % 22 % Monocytes % 6 % Eosinophils % 0 % Basophils % 0 % Neutrophils # 5.1 (1.3-7.7) k/uL Lymphocytes # 1.6 (1.0-4.8) k/uL Monocytes # 0.5 (0-1.0) k/uL Eosinophils # 0.0 (0-0.7) k/uL Basophils # 0.0 (0-0.2) k/uL PT 11.2 (10.0-12.5) sec INR 1.0 (<1.2) APTT 24.1 (22.0-30.0) sec Sodium 123 L (137-145) mmol/L Potassium 5.6 H (3.5-5.1) mmol/L Chloride 87 L (98-107) mmol/L Carbon Dioxide 21 L (22-30) mmol/L Anion Gap 15 mmol/L BUN 11 (9-20) mg/dL Creatinine 0.93 (0.66-1.25) mg/dL Est GFR (CKD-EPI)AfAm >90 (>60 ml/min/1.73 sqM) Est GFR (CKD-EPI)NonAf 84 (>60 ml/min/1.73 sqM) Glucose 108 H (74-99) mg/dL Calcium 9.9 (8.4-10.2) mg/dL Magnesium 1.4 L (1.6-2.3) mg/dL Total Bilirubin 1.9 H (0.2-1.3) mg/dL AST 59 (17-59) U/L ALT 27 (4-49) U/L Alkaline Phosphatase 73 (38-126) U/L Troponin I (0.000-0.034) ng/mL Total Protein 9.2 H (6.3-8.2) g/dL Albumin 5.3 H (3.5-5.0) g/dL 04/01/23 04/01/23 Range/Units 15:59 22:48 WBC (3.8-10.6) k/uL RBC (4.30-5.90) m/uL Hgb (13.0-17.5) gm/dL Hct (39.0-53.0) % MCV (80.0-100.0) fL MCH (25.0-35.0) pg MCHC (31.0-37.0) g/dL RDW (11.5-15.5) % Plt Count (150-450) k/uL MPV Neutrophils % % Lymphocytes % % Monocytes % % Eosinophils % % Basophils % % Neutrophils # (1.3-7.7) k/uL Lymphocytes # (1.0-4.8) k/uL Monocytes # (0-1.0) k/uL Eosinophils # (0-0.7) k/uL Basophils # (0-0.2) k/uL PT (10.0-12.5) sec INR (<1.2) APTT (22.0-30.0) sec Sodium (137-145) mmol/L Potassium (3.5-5.1) mmol/L Chloride (98-107) mmol/L Carbon Dioxide (22-30) mmol/L Anion Gap mmol/L BUN (9-20) mg/dL Creatinine (0.66-1.25) mg/dL Est GFR (CKD-EPI)AfAm (>60 ml/min/1.73 sqM) Est GFR (CKD-EPI)NonAf (>60 ml/min/1.73 sqM) Glucose (74-99) mg/dL Calcium (8.4-10.2) mg/dL Magnesium (1.6-2.3) mg/dL Total Bilirubin (0.2-1.3) mg/dL AST (17-59) U/L ALT (4-49) U/L Alkaline Phosphatase (38-126) U/L Troponin I <0.012 0.035 H* (0.000-0.034) ng/mL Total Protein (6.3-8.2) g/dL Albumin (3.5-5.0) g/dL Critical Care Time Critical Care Time: Yes Total Critical Care Time: 35 <Yoni Lino - Last Filed: 04/02/23 00:13> Disposition <Silvestre Barger - Last Filed: 04/01/23 15:42> Is patient prescribed a controlled substance at d/c from ED?: No Time of Disposition: 00:13 <Yoni Lino - Last Filed: 04/02/23 00:13> Clinical Impression: Chest pain, CAD (coronary artery disease) Disposition: ADMITTED IP TO THIS HOSP Condition: Stable Referrals: Twin Morales MD [Primary Care Provider] - 1-2 days
[2023-04-01 16:25] LABS: Basophils % (A) 0 %; Eosinophils % (A) 0 %; HCT 45.7 % (39.0-53.0); Lymphocytes # (A) 1.6 k/uL (1.0-4.8); Lymphocytes % (A) 22 %; MCH 32.8 pg (25.0-35.0); MCHC 35.1 g/dL (31.0-37.0); MCV 93.6 fL (80.0-100.0); Mean Platelet Volume 7.4; Monocytes # (A) 0.5 k/uL (0-1.0); Monocytes % (A) 6 %; Neutrophils # (A) 5.1 k/uL (1.3-7.7); Neutrophils % (A) 70 %; Platelet Count 229 k/uL (150-450); RBC 4.88 m/uL (4.30-5.90); RDW 12.4 % (11.5-15.5); WBC 7.3 k/uL (3.8-10.6)
[2023-04-01 16:45] LABS: ALT 27 U/L (4-49); AST 59 U/L (17-59); African American GFR (CKD) >90 (>60 ml/min/1.73 sqM); Albumin 5.3 g/dL (3.5-5.0); Alkaline Phosphatase 73 U/L (38-126); Anion Gap 15 mmol/L; Blood Urea Nitrogen 11 mg/dL (9-20); Calcium 9.9 mg/dL (8.4-10.2); Carbon Dioxide 21 mmol/L (22-30); Chloride 87 mmol/L (98-107); Glucose 108 mg/dL (74-99); Magnesium 1.4 mg/dL (1.6-2.3); Non-African American GFR(CKD) 84 (>60 ml/min/1.73 sqM); Sodium 123 mmol/L (137-145); Total Bilirubin 1.9 mg/dL (0.2-1.3); Total Protein 9.2 g/dL (6.3-8.2)
[2023-04-01 16:46] LABS: Potassium 5.6 mmol/L (3.5-5.1)
[2023-04-01 16:47] LABS: Partial Thromboplastin Time 24.1 sec (22.0-30.0); Prothrombin Time 11.2 sec (10.0-12.5)
--- NOTE | 2023-04-01 16:51 | XR ---
EXAMINATION TYPE: XR chest 2V DATE OF EXAM: 04/01/2023 4:38 PM CLINICAL INDICATION:Male, 67 years old with history of Chest Pain; COMPARISON: Chest radiographs from 02/23/2023 TECHNIQUE: XR chest 2V Frontal and lateral views of the chest. FINDINGS: Lungs/Pleura: There is no evidence of pleural effusion, focal consolidation, or pneumothorax. Pulmonary vascularity: Unremarkable. Heart/mediastinum: Cardiomediastinal silhouette is unremarkable. Musculoskeletal: No acute osseous pathology. Other findings: None IMPRESSION: No acute cardiopulmonary disease/process.
[2023-04-01] MEDS ORDERED: NALOXONE 0.4 MG/ML 1 ML VIAL IV PRN (23:56)
[2023-04-01] MEDS ORDERED: ASPIRIN 325 MG TAB PO STA (23:58)
[2023-04-02] MEDS ORDERED: HEPARIN SODIUM 1,000 UN/ML (10ML VL) IV ONE (00:09)
[2023-04-02] MEDS ORDERED: HEPARIN SODIUM 1,000 UN/ML (10ML VL) IV PRN (00:09)
[2023-04-02] MEDS ORDERED: HEPARIN SOD,PORK IN 0.45% NACL 25,000 UNIT in 0.45% NACL 1 250ML.BAG IV SCH (00:15)
[2023-04-02] MEDS: SODIUM CHLORIDE 0.9% 1,000 ML IV SCH ×2 (01:03→05:59)
[2023-04-02] MEDS: MORPHINE SULFATE 4 MG/ML SYRINGE IVP PRN ×3 (01:04→10:11)
[2023-04-02 03:49] LABS: Basophils % (A) 0 %; Eosinophils # (A) 0.1 k/uL (0-0.7); Eosinophils % (A) 1 %; HCT 46.8 % (39.0-53.0); HGB 16.1 gm/dL (13.0-17.5); Lymphocytes # (A) 2.5 k/uL (1.0-4.8); Lymphocytes % (A) 35 %; MCH 32.5 pg (25.0-35.0); MCHC 34.5 g/dL (31.0-37.0); MCV 94.1 fL (80.0-100.0); Mean Platelet Volume 7.8; Monocytes # (A) 0.6 k/uL (0-1.0); Monocytes % (A) 9 %; Neutrophils # (A) 3.7 k/uL (1.3-7.7); Neutrophils % (A) 53 %; Platelet Count 203 k/uL (150-450); RBC 4.97 m/uL (4.30-5.90); RDW 12.4 % (11.5-15.5)
[2023-04-02 03:57] LABS: ALT 23 U/L (4-49); AST 31 U/L (17-59); African American GFR (CKD) >90 (>60 ml/min/1.73 sqM); Albumin 4.3 g/dL (3.5-5.0); Alkaline Phosphatase 76 U/L (38-126); Anion Gap 13 mmol/L; Blood Urea Nitrogen 11 mg/dL (9-20); Calcium 9.9 mg/dL (8.4-10.2); Carbon Dioxide 25 mmol/L (22-30); Chloride 90 mmol/L (98-107); Glucose 94 mg/dL (74-99); Lipase 277 U/L (23-300); Non-African American GFR(CKD) >90 (>60 ml/min/1.73 sqM); Potassium 3.8 mmol/L (3.5-5.1); Sodium 128 mmol/L (137-145); Total Bilirubin 0.9 mg/dL (0.2-1.3); Total Protein 7.5 g/dL (6.3-8.2)
[2023-04-02] MEDS ORDERED: VALSARTAN 80 MG TAB PO SCH (09:00)
[2023-04-02] MEDS ORDERED: allopurinoL 300 MG TAB PO PRN (09:31)
[2023-04-02] MEDS ORDERED: NITROGLYCERIN SL TABS 0.4 MG TAB SUBLINGUAL PRN (09:31)
[2023-04-02] MEDS: FERROUS SULFATE 325 MG TAB PO SCH (09:45)
[2023-04-02] MEDS: PANTOPRAZOLE 40 MG TABLET PO SCH (09:45)
[2023-04-02] MEDS: LEVOTHYROXINE 100 MCG TAB PO SCH (09:45)
[2023-04-02] MEDS: ASPIRIN 81 MG PO SCH (09:45)
[2023-04-02] MEDS: METOPROLOL SUCCINATE (ER) 50 MG TAB.ER.24H PO SCH (09:45)
[2023-04-02] MEDS: TAMSULOSIN 0.4 MG CAP.ER.24H PO SCH (09:46)
[2023-04-02] MEDS: BACLOFEN 10 MG TAB PO PRN ×2 (09:46→19:50)
[2023-04-02] MEDS: MULTIVITAMINS, THERA 1 EACH TAB PO SCH (09:46)
--- NOTE | 2023-04-02 10:29 | P.CRDCN ---
History of Present Illness History of present illness: HISTORY OF PRESENT ILLNESS: This is a 67-year-old male with a past medical history significant for coronary artery disease with previous stenting, hypertension, hyperlipidemia, arthritis, and chronic back pain. Patient follows in the office with Dr. Kenae. We have been asked to see the patient in consultation for chest pain. Patient examined at the bedside. Patient states he started having chest pain 2 days ago. He states he is not doing anything strenuous when the pain started. He does report he has been under a lot of stress at home. He states if he lays still in bed the pain improves. He states if he tries to sit up in bed or move positions the pain g ets worse. He has report taking some Motrin at home with improvement. He also reports yesterday the pain was worse when he was eating. He reports having some diarrhea at home as well. He currently rates his pain is up about a 3/10. The patient reports a recent weight loss of 50 pounds. His blood pressure has been on the lower side since coming to the hospital. His home medication list inclu anne valsartan and enalapril. The patient states he was supposed to stop taking his enalapril but he got his medications mixed up and has been taking both enalapril and valsartan. * EKG reveals sinus mechanism with no signs of acute ischemia * Chest xray negative for acute process * Laboratory data: Sodium 123. Repeat 128. Potassium 3.8. BUN 11. Creatinine 0.73. Troponin 0.012. 0.035. 0.012. Magnesium 1.4. * Current home cardiac medications include aspirin 81 mg daily, atorvastatin 80 mg at night, enalapril 20 mg daily, metoprolol succinate 50 mg daily, valsartan 80 mg daily, hydrochlorothiazide 25 mg daily * Most recent echocardiogram obtained in February 2023 revealed ejection fraction 50-55%, mild inferior hypokinesis, trace to mild MR * Cardiac catheterization history: February 2023 revealing intermediate lesion involving the mid RCA. The lesion is not flow-limiting by Doppler wire. Intermediate lesion involving the ostial first diagonal branch. Medical management was recommended. REVIEW OF SYSTEMS: At the time of my exam: CONSTITUTIONAL: Denies fever or chills. HEENT: Denies blurred vision, vision changes, or eye pain. Denies hemoptysis CARDIOVASCULAR: Denies chest pain. Denies orthopnea. Denies PND. Denies palpitations RESPIRATORY: Denies shortness of breath. GASTROINTESTINAL: Denies abdominal pain. Denies nausea or vomiting. HEMATOLOGIC: Denies bleeding disorders. GENITOURINARY: Denies any blood in urine. SKIN: Denies pruitis. Denies rash. PHYSICAL EXAM: VITAL SIGNS: Reviewed. GENERAL: Well-developed in no acute distress. HEENT: Head is normocephalic. Pupils are equal, round. Sclerae anicteric. Mucous membranes of the mouth are moist. Neck supple. No JVD or thyromegaly LUNGS: Respirations even and unlabored. Lungs essentially clear to auscultation bilaterally. HEART: Regular rate and rhythm. S1 and S2 heard. ABDOMEN: Soft. Nondistended. Nontender. EXTREMITIES: Normal range of motion. No clubbing or cyanosis. Peripheral pulses intact. No lower extremity edema NEUROLOGIC: Awake and alert. Oriented x 3. ASSESSMENT: Chest pain with minimally abnormal troponin, appears GI related or musculoskeletal Coronary artery disease with previous stenting of the LAD and RCA Status post recent cardiac catheterization revealing intermediate lesion involving the mid RCA which was not flow-limiting by Doppler wire Known intermediate lesion involving ostial first diagonal branch Hypertension, with current soft blood pressures Hyperlipidemia Osteoarthritis Chronic back pain PLAN: An acute coronary and has been ruled out Discontinue IV heparin Give GI cocktail x 1 Resume home cardiac medications Patient has valsartan and lisinopril listed as home medication. The patient states he was supposed to stop taking his enalapril but he got his medications mixed up and has been taking both enalapril and valsartan. Will discontinue enalapril. Hold valsartan today secondary to soft blood pressures Hold hydrochlorothiazide secondary to hyponatremia Further recommendations pending patient's course Nurse practitioner note has been reviewed by physician. Signing provider agrees with the documented findings, assessment, and plan of care. Past Medical History Past Medical History: Chest Pain / Angina, Hypertension, Osteoarthritis (OA), Prostate Disorder, Thyroid Disorder Additional Past Medical History / Comment(s): 2013 [facility] dx, hx gout. insomnia, History of Any Multi-Drug Resistant Organisms: MRSA Date of last positivie culture/infection: 2011 MDRO Source:: rt foot Past Surgical History: Back Surgery, Heart Catheterization With Stent, Orthopedic Surgery Additional Past Surgical History / Comment(s): left knee arthroscopy, picc line insertion since removed for ABX for MRSA, one cardiac stent Past Anesthesia/Blood Transfusion Reactions: No Reported Reaction Date of Last Stent Placement:: 08/29/15 Past Psychological History: No Psychological Hx Reported Smoking Status: Never smoker Past Alcohol Use History: None Reported Past Drug Use History: None Reported - Past Family History Father Family Medical History: Cancer Additional Family Medical History / Comment(s): Father of lung cancer at age 76 yrs. Mother Family Medical History: Myocardial Infarction ([place]) Additional Family Medical History / Comment(s): . Brother(s) Family Medical History: Cancer Medications and Allergies Home Medications Medication Instructions Recorded Confirmed Type Tamsulosin [Flomax] 0.8 mg PO DAILY 06/15/21 04/02/23 History Ferrous Sulfate [Iron (65 MG 325 mg PO DAILY 02/24/23 04/02/23 History Elemental)] Levothyroxine Sodium [Synthroid] 200 mcg PO DAILY 02/24/23 04/02/23 History Omeprazole [PriLOSEC] 20 mg PO DAILY 02/24/23 04/02/23 History Testosterone Cypionate 200 mg IM Q14D 02/24/23 04/02/23 History [Depo-Testosterone] Zolpidem [Ambien] 10 mg PO HS 02/24/23 04/02/23 History allopurinoL 300 mg PO DAILY PRN 02/24/23 04/02/23 History Acetaminophen Tab [Tylenol] 650 mg PO Q6HR PRN tab 02/26/23 04/02/23 Rx Aspirin 81 mg PO DAILY #30 tab 02/26/23 04/02/23 Rx Atorvastatin [Lipitor] 80 mg PO HS #30 tab 02/26/23 04/02/23 Rx Metoprolol Succinate (ER) [Toprol 50 mg PO DAILY #30 tab 02/26/23 04/02/23 Rx XL] Valsartan [Diovan] 80 mg PO DAILY #30 tab 02/26/23 04/02/23 Rx hydroCHLOROthiazide [Hydrodiuril] 25 mg PO DAILY #30 tab 02/26/23 04/02/23 Rx Baclofen [Lioresal] 20 mg PO BID PRN 04/02/23 04/02/23 History Enalapril [Vasotec] 20 mg PO DAILY 04/02/23 04/02/23 History Multivitamins, Thera [Multivitamin 1 tab PO DAILY 04/02/23 04/02/23 History (formulary)] Nitroglycerin Sl Tabs [Nitrostat] 0.4 mg SL Q5M PRN 04/02/23 04/02/23 History Allergies Allergy/AdvReac Type Severity Reaction Status Date / Time No Known Allergies Allergy Verified 04/01/23 15:45 Physical Exam Vitals: Vital Signs Temp Pulse Pulse Resp BP BP Pulse Ox 04/02/23 07:58 76 04/02/23 07:56 97.8 F 76 20 104/60 98 04/02/23 05:00 98.4 F 79 14 115/68 97 04/02/23 02:00 98.2 F 80 16 108/64 97 04/01/23 15:43 97.6 F 104 H 18 129/77 91 L Intake and Output 04/01/23 04/02/23 04/02/23 22:59 06:59 14:59 Intake Total 185.926 Output Total 300 Balance -114.074 Intake: Intake, IV Titration 185.926 Amount Heparin Sod,Pork in 0.45% 35.926 NaCl 25,000 unit In 0.45 % NaCl 1 250ml.bag @ 12 UNITS/KG/HR 8.165 mls/hr IV .Q24H [facility] Rx#: [id number] Sodium Chloride 0.9% 1, 150 000 ml @ 50 mls/hr IV . Q20H [facility] Rx#:[id number] Output: Urine 300 Other: Voiding Method Toilet Urinal # Voids 2 Weight 68.039 kg Results 04/02/23 03:17 04/02/23 03:17 Cardiac Enzymes 04/01/23 04/01/23 04/01/23 Range/Units 15:59 15:59 22:48 AST 59 (17-59) U/L Troponin I <0.012 0.035 H* (0.000-0.034) ng/mL 04/02/23 04/02/23 Range/Units 03:17 03:17 AST 31 (17-59) U/L Troponin I <0.012 (0.000-0.034) ng/mL Coagulation 04/01/23 04/02/23 Range/Units 15:59 03:17 PT 11.2 (10.0-12.5) sec APTT 24.1 24.2 (22.0-30.0) sec CBC 04/01/23 04/02/23 Range/Units 15:59 03:17 WBC 7.3 7.0 (3.8-10.6) k/uL RBC 4.88 4.97 (4.30-5.90) m/uL Hgb 16.0 16.1 (13.0-17.5) gm/dL Hct 45.7 46.8 (39.0-53.0) % Plt Count 229 203 (150-450) k/uL Comprehensive Metabolic Panel 04/01/23 04/02/23 Range/Units 15:59 03:17 Sodium 123 L 128 L (137-145) mmol/L Potassium 5.6 H 3.8 (3.5-5.1) mmol/L Chloride 87 L 90 L (98-107) mmol/L Carbon Dioxide 21 L 25 (22-30) mmol/L BUN 11 11 (9-20) mg/dL Creatinine 0.93 0.73 (0.66-1.25) mg/dL Glucose 108 H 94 (74-99) mg/dL Calcium 9.9 9.9 (8.4-10.2) mg/dL AST 59 31 (17-59) U/L ALT 27 23 (4-49) U/L Alkaline Phosphatase 73 76 (38-126) U/L Total Protein 9.2 H 7.5 (6.3-8.2) g/dL Albumin 5.3 H 4.3 (3.5-5.0) g/dL Current Medications Generic Name Dose Route Start Last Admin Trade Name Freq PRN Reason Stop Dose Admin Acetaminophen 650 mg 04/01/23 23:56 Acetaminophen Tab 325 Mg Tab PO Q6HR PRN Mild Pain or Fever > 100.5 Heparin Sodium (Porcine) 0 unit 04/02/23 00:09 Heparin Sodium 1,000 Un/Ml (10ml Vl) IV PER PROTOCOL PRN Low PTT Protocol Sodium Chloride 1,000 mls @ 50 mls/hr 04/01/23 23:45 04/02/23 05:59 Saline 0.9% IV 50 mls/hr .Q20H [facility] Administration Heparin Sodium/Sodium Chloride 250 mls @ 8.165 mls/hr 04/02/23 00:15 04/02/23 05:29 25,000 unit/ Sodium Chloride IV 15 units/kg/hr .Q24H [facility] 10.206 mls/hr Titration Protocol 12 UNITS/KG/HR Morphine Sulfate 4 mg 04/02/23 00:08 04/02/23 05:56 Morphine Sulfate 4 Mg/Ml Syringe IVP 4 mg Q4HR PRN Administration Pain Naloxone HCl 0.2 mg 04/01/23 23:56 Naloxone 0.4 Mg/Ml 1 Ml Vial IV Q2M PRN Opioid Reversal Intake and Output 04/01/23 04/02/23 04/02/23 22:59 06:59 14:59 Intake Total 185.926 Output Total 300 Balance -114.074 Intake: Intake, IV Titration 185.926 Amount Heparin Sod,Pork in 0.45% 35.926 NaCl 25,000 unit In 0.45 % NaCl 1 250ml.bag @ 12 UNITS/KG/HR 8.165 mls/hr IV .Q24H [facility] Rx#: [id number] Sodium Chloride 0.9% 1, 150 000 ml @ 50 mls/hr IV . Q20H [facility] Rx#:[id number] Output: Urine 300 Other: Voiding Method Toilet Urinal # Voids 2 Weight 68.039 kg 04/02/23 03:17 04/02/23 03:17
[2023-04-02] MEDS ORDERED: MAG HYDROX/AL HYDROX/SIMETH 30 ML, HYOSCYAMINE ELIXIR 10 ML, LIDOCAINE VISCOUS 10 ML PO ONE ×3 (10:30)
--- NOTE | 2023-04-02 14:39 | P.HPIM ---
History of Present Illness H&P Date: 04/02/23 Patient is an 67 year old patient hypertension, osteoarthritis, hypothyroidism, legionares disease, Coronary artery disease with prior cardiac stenting. Patient is a never smoker. Patient was admitted back in February of this year for chest pain was evaluated by cardiology and had abnormal stress test with inducible ischemia; patient had a cardiology cathteterization revealing intermediation lesion in the mid RCA and ostial first diagonal branch and was managed on optimal medication therapy. Patient comes back in with complaints of 2 day onset of chest discomfort mid chest reports as a pressure like sensation; with associated lightheadedness and shortness of breath. Reports he was not doing any strenuous activity when the chest pain started. He also reports yesterday the pain was worse when he was eating. He reports having some diarrhea at home as well. At this time he states diarrhea has resolved. He has no abdominal tenderness, no fever or chills. He does not have a gallbladder. States in the past when he had this sensation he was diagnosed with pancreatitis from an outside hospital. Patient reports seeing his corporate financial analyst on follow up after his recent discharge thought he was told to stop one of his blood pressure medications but he did not stop them. EKG reveals sinus mechanism with no signs of acute ischemia. Chest xray negative for acute process. Sodium 123 on admission, BUN 11, creatinine 0.73, troponin 0.012, 0.035, 0.012. Patient had recent echocardiogram in February during last hospitalization revealing EF 50- 55% mild inferior hypokinesis, trace to mild MR. He was admitted to the hospital in observation with cardiology consultation, he was given IV fluids and started on IV heparin. REVIEW OF SYSTEMS: CONSTITUTIONAL: No fever, no malaise, no fatigue. HEENT: No recent visual problems or hearing problems. Denied any sore throat. CARDIOVASCULAR: Reports chest pain orthopnea, PND, no palpitations, no syncope. PULMONARY: No shortness of breath, no cough, no hemoptysis. GASTROINTESTINAL: No diarrhea, no nausea, no vomiting, no abdominal pain. NEUROLOGICAL: No headaches, no weakness, no numbness. HEMATOLOGICAL: Denies any bleeding or petechiae. GENITOURINARY: Denies any burning micturition, frequency, or urgency. MUSCULOSKELETAL/RHEUMATOLOGICAL: Denies any joint pain, swelling, or any muscle pain. ENDOCRINE: Denies any polyuria or polydipsia. The rest of the 14-point review of systems is negative. PHYSICAL EXAMINATION: GENERAL: The patient is alert and oriented x3, not in any acute distress. Well developed, well nourished. HEENT: Pupils are round and equally reacting to light. EOMI. No scleral icterus. No conjunctival pallor. Normocephalic, atraumatic. No pharyngeal erythema. No thyromegaly. CARDIOVASCULAR: S1 and S2 present. No murmurs, rubs, or gallops. PULMONARY: Chest is clear to auscultation, no wheezing or crackles. ABDOMEN: Soft, nontender, nondistended, normoactive bowel sounds. No palpable organomegaly. MUSCULOSKELETAL: No joint swelling or deformity. EXTREMITIES: No cyanosis, clubbing, or pedal edema. NEUROLOGICAL: Gross neurological examination did not reveal any focal deficits. SKIN: No rashes. Assessment and Plan Chest pain with troponin elevation. CP is likely musculoskeletal in nature with tenderness to palpation over the sternal region, cardiology was consulted and does appear as ACS, IV heparin was stopped. Coronary artery disease with previous stenting of the LAD and RCA with recent cath revealing intermediate lesion of mid RCA and ostial first diagonal branch. Hypertension currently low/normotensive cardiology recommending to hold enalapril and monitor closely patient was supposed to stop this medication on an outpatient basis and did not. Hyponatremia likely hypovolemic combination of GI losses and medication affect. Hctz will also be held due to the low sodium will repeat labs in the AM. Patient will be continued on IV fluids at this time with normal saline. Diarrhea likely a viral gastroenteritis appears to be resolving and will continue with IV fluids Abdominal pain with patient reporting history of pancreatitis at this time lipase and liver enzymes are normal, no epigastric tenderness noted on exam. Patient was given GI cocktail. Hyperlipidemia Osteoarthritis Chronic back pain continue on tylenol as needed GI prophylaxis DVT prophylaxis Full Code Plan Continue on current cardiac medications, IV fluids. Enalapril and HCTZ are held at this time. Recommend to repeat labs in AM. Possible D/C home tomorrow. The impression and plan of care has been dictated by Lynnette Salomon, Nurse Practitioner as directed. Dr. Marlyn MD I have performed a history and physical examination and medical decision making of this patient, discussed the same with the dictator, and agree with the dictators assessment and plan as written, documented as a scribe. Based on total visit time, I have performed more than 50% of this visit. 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 insomnia, History of Any Multi-Drug Resistant Organisms: MRSA Date of last positivie culture/infection: 2011 MDRO Source:: rt foot Past Surgical History: Back Surgery, Heart Catheterization With Stent, Orthopedic Surgery Additional Past Surgical History / Comment(s): left knee arthroscopy, picc line insertion since removed for ABX for MRSA, one cardiac stent Past Anesthesia/Blood Transfusion Reactions: No Reported Reaction Date of Last Stent Placement:: 08/29/15 Past Psychological History: No Psychological Hx Reported Smoking Status: Never smoker Past Alcohol Use History: None Reported Past Drug Use History: None Reported - Past Family History Father Family Medical History: Cancer Additional Family Medical History / Comment(s): Father of lung cancer at age 76 yrs. Mother Family Medical History: Myocardial Infarction ([place]) Additional Family Medical History / Comment(s): . Brother(s) Family Medical History: Cancer Medications and Allergies Home Medications Medication Instructions Recorded Confirmed Type Tamsulosin [Flomax] 0.8 mg PO DAILY 06/15/21 04/02/23 History Ferrous Sulfate [Iron (65 MG 325 mg PO DAILY 02/24/23 04/02/23 History Elemental)] Levothyroxine Sodium [Synthroid] 200 mcg PO DAILY 02/24/23 04/02/23 History Omeprazole [PriLOSEC] 20 mg PO DAILY 02/24/23 04/02/23 History Testosterone Cypionate 200 mg IM Q14D 02/24/23 04/02/23 History [Depo-Testosterone] Zolpidem [Ambien] 10 mg PO HS 02/24/23 04/02/23 History allopurinoL 300 mg PO DAILY PRN 02/24/23 04/02/23 History Acetaminophen Tab [Tylenol] 650 mg PO Q6HR PRN tab 02/26/23 04/02/23 Rx Aspirin 81 mg PO DAILY #30 tab 02/26/23 04/02/23 Rx Atorvastatin [Lipitor] 80 mg PO HS #30 tab 02/26/23 04/02/23 Rx Metoprolol Succinate (ER) [Toprol 50 mg PO DAILY #30 tab 02/26/23 04/02/23 Rx XL] Valsartan [Diovan] 80 mg PO DAILY #30 tab 02/26/23 04/02/23 Rx hydroCHLOROthiazide [Hydrodiuril] 25 mg PO DAILY #30 tab 02/26/23 04/02/23 Rx Baclofen [Lioresal] 20 mg PO BID PRN 04/02/23 04/02/23 History Enalapril [Vasotec] 20 mg PO DAILY 04/02/23 04/02/23 History Multivitamins, Thera [Multivitamin 1 tab PO DAILY 04/02/23 04/02/23 History (formulary)] Nitroglycerin Sl Tabs [Nitrostat] 0.4 mg SL Q5M PRN 04/02/23 04/02/23 History Allergies Allergy/AdvReac Type Severity Reaction Status Date / Time No Known Allergies Allergy Verified 04/01/23 15:45 Physical Exam Vitals: Vital Signs Temp Pulse Pulse Resp BP BP Pulse Ox 04/02/23 07:58 76 04/02/23 07:56 97.8 F 76 20 104/60 98 04/02/23 05:00 98.4 F 79 14 115/68 97 04/02/23 02:00 98.2 F 80 16 108/64 97 04/01/23 15:43 97.6 F 104 H 18 129/77 91 L Intake and Output 04/01/23 04/02/23 04/02/23 22:59 06:59 14:59 Intake Total 185.926 Output Total 300 Balance -114.074 Intake: Intake, IV Titration 185.926 Amount Heparin Sod,Pork in 0.45% 35.926 NaCl 25,000 unit In 0.45 % NaCl 1 250ml.bag @ 12 UNITS/KG/HR 8.165 mls/hr IV .Q24H [facility] Rx#: [id number] Sodium Chloride 0.9% 1, 150 000 ml @ 50 mls/hr IV . Q20H [facility] Rx#:[id number] Output: Urine 300 Other: Voiding Method Toilet Urinal # Voids 2 Weight 68.039 kg Results CBC & Chem 7: 04/02/23 03:17 04/02/23 03:17 Labs: Abnormal Lab Results - Last 24 Hours (Table) 04/01/23 04/01/23 04/02/23 Range/Units 15:59 22:48 03:17 Sodium 123 L 128 L (137-145) mmol/L Potassium 5.6 H (3.5-5.1) mmol/L Chloride 87 L 90 L (98-107) mmol/L Carbon Dioxide 21 L (22-30) mmol/L Glucose 108 H (74-99) mg/dL Magnesium 1.4 L (1.6-2.3) mg/dL Total Bilirubin 1.9 H (0.2-1.3) mg/dL Troponin I 0.035 H* (0.000-0.034) ng/mL Total Protein 9.2 H (6.3-8.2) g/dL Albumin 5.3 H (3.5-5.0) g/dL Assessment and Plan Time with Patient: Less than 30
[2023-04-02] MEDS: ACETAMINOPHEN TAB 325 MG TAB PO PRN ×2 (14:44→19:50)
[2023-04-02] MEDS ORDERED: Magnesium Replacement Protocol 1 EACH MISC MISCELLANE PRN (14:51)
[2023-04-02] MEDS: MAGNESIUM SULFATE-D5W PMX 1 GM in DEXTROSE/WATER 1 100ML.BAG IVPB SCH ×2 (15:22→16:24)
[2023-04-02] MEDS: HEPARIN SODIUM,PORCINE 5,000 UNIT/ML 1 ML VIAL SQ SCH ×2 (15:22→22:59)
[2023-04-02] MEDS ORDERED: ATORVASTATIN 80 MG TAB PO SCH (21:00)
[2023-04-03] MEDS: LEVOTHYROXINE 100 MCG TAB PO SCH (05:38)
[2023-04-03 05:51] VITALS: TEMP 97.7
[2023-04-03] MEDS: ACETAMINOPHEN TAB 325 MG TAB PO PRN ×2 (05:51→11:45)
[2023-04-03 08:41] LABS: African American GFR (CKD) >90 (>60 ml/min/1.73 sqM); Anion Gap 13 mmol/L; Blood Urea Nitrogen 18 mg/dL (9-20); Calcium 9.9 mg/dL (8.4-10.2); Carbon Dioxide 24 mmol/L (22-30); Chloride 97 mmol/L (98-107); Glucose 99 mg/dL (74-99); Non-African American GFR(CKD) 82 (>60 ml/min/1.73 sqM); Potassium 4.3 mmol/L (3.5-5.1); Sodium 134 mmol/L (137-145)
[2023-04-03] MEDS: PANTOPRAZOLE 40 MG TABLET PO SCH (09:20)
[2023-04-03] MEDS: ASPIRIN 81 MG PO SCH (09:20)
[2023-04-03] MEDS: FERROUS SULFATE 325 MG TAB PO SCH (09:21)
[2023-04-03] MEDS: MULTIVITAMINS, THERA 1 EACH TAB PO SCH (09:21)
[2023-04-03] MEDS: METOPROLOL SUCCINATE (ER) 50 MG TAB.ER.24H PO SCH (09:21)
[2023-04-03] MEDS: HEPARIN SODIUM,PORCINE 5,000 UNIT/ML 1 ML VIAL SQ SCH (09:21)
[2023-04-03] MEDS: TAMSULOSIN 0.4 MG CAP.ER.24H PO SCH (09:21)
[2023-04-03 09:38] VITALS: RESP 16
[2023-04-03 12:10] VITALS: BP 113/58; PULSE 90
--- NOTE | 2023-04-03 12:57 | XR ---
EXAMINATION TYPE: XR abdomen 2V DATE OF EXAM: 04/03/2023 COMPARISON: NONE HISTORY: Constipation TECHNIQUE: Two view abdominal series FINDINGS: The osseous structures are intact. The bowel gas pattern is nonspecific. No evidence of obstruction. Moderate retained stool burden Postsurgical change of lower lumbar spine. IMPRESSION: 1. Nonspecific abdomen.
[2023-04-03] MEDS ORDERED: bisacodyL 10 MG SUPP RECTAL STA (13:13)
--- NOTE | 2023-04-03 14:35 | P.PN ---
Subjective HISTORY OF PRESENT ILLNESS: This is a 67-year-old male with a past medical history significant for coronary artery disease with previous stenting, hypertension, hyperlipidemia, arthritis, and chronic back pain. Patient follows in the office with Dr. Keane. We have been asked to see the patient in consultation for chest pain. Patient examined at the bedside. Patient states he started having chest pain 2 days ago. He states he is not doing anything strenuous when the pain started. He does report he has been under a lot of stress at home. He states if he lays still in bed the pain improves. He states if he tries to sit up in bed or move positions the pain gets worse. He has report taking some Motrin at home with improvement. He also reports yesterday the pain was worse when he was eating. He reports having some diarrhea at home as well. He currently rates his pain is up about a 3/10. The patient reports a recent weight loss of 50 pounds. His blood pressure has been on the lower side since coming to the hospital. His home medication list includes valsartan and enalapril. The patient states he was supposed to stop taking his enalapril but he got his medications mixed up and has been taking both enalapril and valsartan. * EKG reveals sinus mechanism with no signs of acute ischemia * Chest xray negative for acute process * Laboratory data: Sodium 123. Repeat 128. Potassium 3.8. BUN 11. Creatinine 0.73. Troponin 0.012. 0.035. 0.012. Magnesium 1.4. * Current home cardiac medications include aspirin 81 mg daily, atorvastatin 80 mg at night, enalapril 20 mg daily, metoprolol succinate 50 mg daily, valsartan 80 mg daily, hydrochlorothiazide 25 mg daily * Most recent echocardiogram obtained in February 2023 revealed ejection fraction 50-55%, mild inferior hypokinesis, trace to mild MR * Cardiac catheterization history: February 2023 revealing intermediate lesion involving the mid RCA. The lesion is not flow-limiting by Doppler wire. Intermediate lesion involving the ostial first diagonal branch. Medical management was recommended. 04/03/2023 Patient examined this morning at the bedside. Patient currently denies chest pain or pressure. He denies shortness of breath. He reports feeling constipated today. Vital signs are stable. Blood pressure has improved today. PHYSICAL EXAM: VITAL SIGNS: Reviewed. GENERAL: Well-developed in no acute distress. HEENT: Head is normocephalic. Pupils are equal, round. Sclerae anicteric. Mucous membranes of the mouth are moist. Neck supple. No JVD or thyromegaly LUNGS: Respirations even and unlabored. Lungs essentially clear to auscultation bilaterally. HEART: Regular rate and rhythm. S1 and S2 heard. ABDOMEN: Soft. Nondistended. Nontender. EXTREMITIES: Normal range of motion. No clubbing or cyanosis. Peripheral pulses intact. No lower extremity edema NEUROLOGIC: Awake and alert. Oriented x 3. ASSESSMENT: Chest pain with minimally abnormal troponin, appears GI related or musculoskeletal Coronary artery disease with previous stenting of the LAD and RCA Status post recent cardiac catheterization revealing intermediate lesion involving the mid RCA which was not flow-limiting by Doppler wire Known intermediate lesion involving ostial first diagonal branch Hypertension, with current soft blood pressures Hyperlipidemia Osteoarthritis Chronic back pain PLAN: Hold valsartan secondary to soft blood pressures Hold hydrochlorothiazide secondary to hyponatremia Continue additional cardiac medications Patient is stable for discharge home today from a cardiac standpoint Nurse practitioner note has been reviewed by physician. Signing provider agrees with the documented findings, assessment, and plan of care. Objective - Vital Signs Vital signs: Vital Signs Temp 97.7 F 04/03/23 04:00 Pulse 77 04/03/23 04:00 Resp 17 04/03/23 04:00 BP 129/82 04/03/23 04:00 Pulse Ox 98 04/03/23 04:00 FiO2 Intake & Output 04/02/23 04/03/23 04/03/23 18:59 06:59 18:59 Intake Total 110 Output Total 800 Balance -690 Weight 68.039 kg Intake: Oral 110 Output: Urine 800 Other: Voiding Method Toilet Toilet Urinal Urinal - Labs CBC & Chem 7: 04/02/23 03:17 04/03/23 07:32 Labs: Abnormal Lab Results - Last 24 Hours (Table) 04/02/23 04/03/23 Range/Units 03:17 07:32 Sodium 134 L (137-145) mmol/L Chloride 97 L (98-107) mmol/L Magnesium 1.4 L (1.6-2.3) mg/dL
--- NOTE | 2023-04-05 17:03 | P.DS ---
Providers Date of admission: 04/01/23 23:58 Attending physician: Meryl Hancock Consults: 04/01/23 23:56 Consult Physician Routine Consulting Provider: Ricardo Zavala Consult Reason/Comments: CP Do you want consulting provider notified?: Yes Primary care physician: Twin Morales Hospital Course: Final Diagnosis Chest pain with troponin elevation. CP is likely musculoskeletal in nature with tenderness to palpation over the sternal region, cardiology was consulted and does not appear as ACS. Coronary artery disease with previous stenting of the LAD and RCA with recent cath revealing intermediate lesion of mid RCA and ostial first diagonal branch. Hypertension currently low/normotensive cardiology recommending to hold enalapril and also hold valsartan. Hyponatremia likely hypovolemic combination of GI losses and medication affect. Diarrhea likely a viral gastroenteritis appears to be resolving and will continue with IV fluids Abdominal pain with patient reporting history of pancreatitis at this time lipase and liver enzymes are normal, no epigastric tenderness noted on exam. Patient was given GI cocktail. Hyperlipidemia Osteoarthritis Chronic back pain continue on tylenol as needed Discharge Disposition Patient is stable for discharge home. Patient has been cleared by cardiology services. Recommending at this time to hold hydrochlorothiazide, enalapril, and valsartan on discharge. Also recommending to cut down the dose of baclofen. Pt to see Dr. Twin Morales in 1 to 2 days and to follow up with his known swaging machine adjuster Dr. Keane in 1 week. Repeat BMP in 1 week outpatient. Hospital Course Patient is an 67 year old patient hypertension, osteoarthritis, hypothyroidism, legionares disease, Coronary artery disease with prior cardiac stenting. Patient is a never smoker. Patient was admitted back in February of this year for chest pain was evaluated by cardiology and had abnormal stress test with inducible ischemia; patient had a cardiology cathteterization revealing intermediation lesion in the mid RCA and ostial first diagonal branch and was managed on optimal medication therapy. Patient comes back in with complaints of 2 day onset of chest discomfort mid chest reports as a pressure like sensation; with associated lightheadedness and shortness of breath. Reports he was not doing any strenuous activity when the chest pain started. He also reports yesterday the pain was worse when he was eating. He reports having some diarrhea at home as well. At this time he states diarrhea has resolved. He has no abdominal tenderness, no fever or chills. He does not have a gallbladder. States in the past when he had this sensation he was diagnosed with pancreatitis from an outside hospital. Patient reports seeing his swaging machine adjuster on follow up after his recent discharge thought he was told to stop one of his blood pressure medications but he did not stop them. EKG reveals sinus mechanism with no signs of acute ischemia. Chest xray negative for acute process. Sodium 123 on admission, BUN 11, creatinine 0.73, troponin 0.012, 0.035, 0.012. Patient had recent echocardiogram in February during last hospitalization revealing EF 50- 55% mild inferior hypokinesis, trace to mild MR. He was admitted to the hospital in observation with cardiology consultation, he was given IV fluids and started on IV heparin. He did complain of constipation and abdominal xray was done reve aling a non specific abdomen with moderate retained stool burden was given suppository and laxatives and he did have a BM. With hydration his sodium improved to 134. ACS not likely and IV heparin was stopped. He is recommended to hold valsartan, hydrodiuril, enalapril. Given lactulose for constipation. No longer having chest pain, no shortness of breath. No nausea vomiting or diarrhea. Lungs are clear, abdomen is soft and nontender. Focal neurological exam is negative. He will be discharged home. Please see medication reconciliation for a list of current medications. Thank you for allowing us to participate in the care of this patient. The impression and plan of care has been dictated by Lynnette Salomon, Nurse Practitioner as directed. Dr. Marlyn MD I have performed a history and physical examination and medical decision making of this patient, discussed the same with the dictator, and agree with the dictators assessment and plan as written, documented as a scribe. Based on total visit time, I have performed more than 50% of this visit. Patient Condition at Discharge: Stable Plan - Discharge Summary Discharge Rx Participant: No New Discharge Prescriptions: New Baclofen [Lioresal] 5 mg PO BID PRN tab PRN Reason: Muscle Spasm Lactulose 20 gm PO DAILY PRN #150 ml PRN Reason: Constipation Continue allopurinoL 300 mg PO DAILY PRN PRN Reason: Gout Flare Levothyroxine Sodium [Synthroid] 200 mcg PO DAILY Aspirin 81 mg PO DAILY #30 tab Nitroglycerin Sl Tabs [Nitrostat] 0.4 mg SL Q5M PRN PRN Reason: Chest Pain Tamsulosin [Flomax] 0.8 mg PO DAILY Ferrous Sulfate [Iron (65 MG Elemental)] 325 mg PO DAILY Omeprazole [PriLOSEC] 20 mg PO DAILY Testosterone Cypionate [Depo-Testosterone] 200 mg IM Q14D Zolpidem [Ambien] 10 mg PO HS Atorvastatin [Lipitor] 80 mg PO HS #30 tab Metoprolol Succinate (ER) [Toprol XL] 50 mg PO DAILY #30 tab Acetaminophen Tab [Tylenol] 650 mg PO Q6HR PRN tab PRN Reason: Mild Pain Or Fever > 100.5 Multivitamins, Thera [Multivitamin (formulary)] 1 tab PO DAILY Discontinued Baclofen [Lioresal] 20 mg PO BID PRN PRN Reason: Muscle Spasm Valsartan [Diovan] 80 mg PO DAILY #30 tab hydroCHLOROthiazide [Hydrodiuril] 25 mg PO DAILY #30 tab Enalapril [Vasotec] 20 mg PO DAILY Discharge Medication List Tamsulosin [Flomax] 0.8 mg PO DAILY 06/15/21 [History] Ferrous Sulfate [Iron (65 MG Elemental)] 325 mg PO DAILY 02/24/23 [History] Levothyroxine Sodium [Synthroid] 200 mcg PO DAILY 02/24/23 [History] Omeprazole [PriLOSEC] 20 mg PO DAILY 02/24/23 [History] Testosterone Cypionate [Depo-Testosterone] 200 mg IM Q14D 02/24/23 [History] Zolpidem [Ambien] 10 mg PO HS 02/24/23 [History] allopurinoL 300 mg PO DAILY PRN 02/24/23 [History] Acetaminophen Tab [Tylenol] 650 mg PO Q6HR PRN tab 02/26/23 [Rx] Aspirin 81 mg PO DAILY #30 tab 02/26/23 [Rx] Atorvastatin [Lipitor] 80 mg PO HS #30 tab 02/26/23 [Rx] Metoprolol Succinate (ER) [Toprol XL] 50 mg PO DAILY #30 tab 02/26/23 [Rx] Multivitamins, Thera [Multivitamin (formulary)] 1 tab PO DAILY 04/02/23 [History] Nitroglycerin Sl Tabs [Nitrostat] 0.4 mg SL Q5M PRN 04/02/23 [History] Baclofen [Lioresal] 5 mg PO BID PRN tab 04/03/23 [Rx] Lactulose 20 gm PO DAILY PRN #150 ml 04/03/23 [Rx] Follow up Appointment(s)/Referral(s): Suamn Keane MD [STAFF PHYSICIAN] - 1 Week Twin Morales MD [Primary Care Provider] - 1-2 days Ambulatory/Diagnostic Orders: Basic Metabolic Panel [LAB.AMB] Time Frame: 3 Days, Location: None Selected Discharge Disposition: HOME SELF-CARE
== END 2023-04-03 14:52 | disposition home or self-care (01) ==
LOC: EC 15:39 → 3SCARD 23:58 → INTOOBSV 23:58 → 3SCARD 04-02 00:46
PROVIDERS: ADMIT Hospitalist; ATTEND Hospitalist
DX: R07.9 Chest pain, unspecified (principal); I25.10 Atherosclerotic heart disease of native coronary artery without angina pectoris; E87.1 Hypo-osmolality and hyponatremia; R19.7 Diarrhea, unspecified; R10.9 Unspecified abdominal pain; I10 Essential (primary) hypertension; E78.5 Hyperlipidemia, unspecified; G89.29 Other chronic pain; M54.9 Dorsalgia, unspecified; M19.90 Unspecified osteoarthritis, unspecified site; E03.9 Hypothyroidism, unspecified; Z95.5 Presence of coronary angioplasty implant and graft; Z79.890 Hormone replacement therapy; Z79.82 Long term (current) use of aspirin; Z79.899 Other long term (current) drug therapy
CPT/HCPCS: 96366 ×2; 96372 ×3; 96376; 96365; 96375; 99291; 36415; 93005; 80053 ×2; 80048; 83690; 83735 ×3; 84484 ×2; 85025 ×2; 85610; 85730 ×2; 71046; 74019; G0378 ×3; J2270; J1644 ×4; J3475

== ENCOUNTER 2023-04-16 22:02 | Observation (INO) | payer MEDICARE, OTHER ==
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
[2023-04-16] MEDS: SODIUM CHLORIDE 0.9% 1,000 ML IV SCH (22:44)
[2023-04-16 22:51] LABS: Basophils % (A) 0 %; Eosinophils # (A) 0.1 k/uL (0-0.7); Eosinophils % (A) 1 %; HCT 41.9 % (39.0-53.0); HGB 14.5 gm/dL (13.0-17.5); Lymphocytes # (A) 3.5 k/uL (1.0-4.8); Lymphocytes % (A) 32 %; MCH 32.2 pg (25.0-35.0); MCHC 34.7 g/dL (31.0-37.0); MCV 92.9 fL (80.0-100.0); Mean Platelet Volume 6.6; Monocytes # (A) 0.5 k/uL (0-1.0); Monocytes % (A) 4 %; Neutrophils # (A) 6.7 k/uL (1.3-7.7); Neutrophils % (A) 62 %; Platelet Count 292 k/uL (150-450); RBC 4.51 m/uL (4.30-5.90); RDW 12.6 % (11.5-15.5); WBC 10.9 k/uL (3.8-10.6)
[2023-04-16 23:19] LABS: ALT 26 U/L (4-49); AST 29 U/L (17-59); African American GFR (CKD) >90 (>60 ml/min/1.73 sqM); Albumin 4.1 g/dL (3.5-5.0); Alkaline Phosphatase 74 U/L (38-126); Anion Gap 13 mmol/L; Blood Urea Nitrogen 9 mg/dL (9-20); Calcium 9.5 mg/dL (8.4-10.2); Carbon Dioxide 20 mmol/L (22-30); Chloride 93 mmol/L (98-107); Glucose 94 mg/dL (74-99); Lipase 101 U/L (23-300); Magnesium 1.7 mg/dL (1.6-2.3); Non-African American GFR(CKD) >90 (>60 ml/min/1.73 sqM); Sodium 126 mmol/L (137-145); Total Bilirubin 0.8 mg/dL (0.2-1.3); Total Protein 7.2 g/dL (6.3-8.2)
[2023-04-16] MEDS ORDERED: ONDANSETRON 4 MG/2 ML VIAL IVP PRN (23:45)
[2023-04-16] MEDS ORDERED: NALOXONE 0.4 MG/ML 1 ML VIAL IV PRN (23:45)
[2023-04-17] MEDS ORDERED: FLUORESCEIN STRIPS 1 MG STRIP LEFT EYE ONE (00:31)
[2023-04-17] MEDS: HYDROcodone/APAP 5-325MG 1 EACH TAB PO PRN ×6 (03:27→23:53)
[2023-04-17] MEDS ORDERED: ACETAMINOPHEN TAB 325 MG TAB PO PRN (10:23)
[2023-04-17] MEDS ORDERED: allopurinoL 300 MG TAB PO PRN (10:23)
[2023-04-17] MEDS ORDERED: LACTULOSE 20 GM/30 ML CUP PO PRN (10:23)
[2023-04-17] MEDS: PANTOPRAZOLE 40 MG/10 ML VIAL IVP SCH ×2 (10:53→20:22)
[2023-04-17] MEDS: MAG HYDROX/AL HYDROX/SIMETH 30 ML CUP PO SCH ×3 (10:53→20:57)
[2023-04-17 11:16] LABS: African American GFR (CKD) >90 (>60 ml/min/1.73 sqM); Anion Gap 13 mmol/L; Blood Urea Nitrogen 9 mg/dL (9-20); Calcium 9.7 mg/dL (8.4-10.2); Carbon Dioxide 22 mmol/L (22-30); Chloride 95 mmol/L (98-107); Glucose 113 mg/dL (74-99); Non-African American GFR(CKD) >90 (>60 ml/min/1.73 sqM); Potassium 4.4 mmol/L (3.5-5.1); Sodium 130 mmol/L (137-145)
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
[2023-04-17] MEDS: SODIUM CHLORIDE 0.9% 1,000 ML IV SCH (16:05)
[2023-04-17 18:58] LABS: T4, Free (Free Thyroxine) 2.19 ng/dL (0.78-2.19)
[2023-04-17 20:38] VITALS: RESP 16
[2023-04-17] MEDS ORDERED: ATORVASTATIN 80 MG TAB PO SCH (21:00)
[2023-04-18] MEDS: SODIUM CHLORIDE 0.9% 1,000 ML IV SCH ×2 (01:28→18:11)
[2023-04-18] MEDS: HYDROcodone/APAP 5-325MG 1 EACH TAB PO PRN ×4 (03:57→16:35)
[2023-04-18] MEDS: MAG HYDROX/AL HYDROX/SIMETH 30 ML CUP PO SCH ×2 (08:02→12:41)
[2023-04-18] MEDS: PANTOPRAZOLE 40 MG/10 ML VIAL IVP SCH (08:03)
[2023-04-18 08:53] LABS: BUN/Creat Ratio 13.67 Ratio (12.00-20.00); Blood Urea Nitrogen 12.3 mg/dL (9.0-27.0); Calcium 9.4 mg/dL (8.7-10.3); Chloride 100 mmol/L (96-109); Glucose 97 mg/dL (70-110); Potassium 4.8 mmol/L (3.5-5.5); Sodium 133 mmol/L (135-145)
[2023-04-18] MEDS ORDERED: TAMSULOSIN 0.4 MG CAP.ER.24H PO SCH (09:00)
[2023-04-18] MEDS ORDERED: ASPIRIN 81 MG PO SCH (09:00)
[2023-04-18] MEDS ORDERED: LEVOTHYROXINE 88 MCG TAB PO SCH (09:00)
[2023-04-18] MEDS ORDERED: MULTIVITAMINS, THERA 1 EACH TAB PO SCH (09:00)
[2023-04-18] MEDS ORDERED: VALSARTAN 80 MG TAB PO SCH (09:00)
[2023-04-18] MEDS ORDERED: METOPROLOL SUCCINATE (ER) 50 MG TAB.ER.24H PO SCH (09:00)
[2023-04-18] MEDS ORDERED: ENOXAPARIN 40 MG/0.4 ML SYRINGE SQ SCH (09:00)
[2023-04-18] MEDS ORDERED: FERROUS SULFATE 325 MG TAB PO SCH (09:00)
[2023-04-18 13:11] VITALS: BP 106/66; PULSE 73; TEMP 97.7
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
--- NOTE | 2023-04-18 21:40 | P.CRDCN ---
History of Present Illness History of present illness: HISTORY OF PRESENT ILLNESS: This is a 67-year-old male with a past medical history significant for coronary artery disease with previous stenting, hypertension, hyperlipidemia, arthritis, and chronic back pain. Patient follows in the office with Dr. Keane. We have been asked to see the patient in consultation for chest pain. Patient has been having off and on chest pain which is central, not associated with any exertion and no associated nausea or diaphoresis. * Most recent echocardiogram obtained in February 2023 revealed ejection fraction 50-55%, mild inferior hypokinesis, trace to mild MR * Cardiac catheterization history: February 2023 revealing intermediate lesion involving the mid RCA. The lesion is not flow-limiting by Doppler wire. Intermediate lesion involving the ostial first diagonal branch. Medical management was recommended. REVIEW OF SYSTEMS: At the time of my exam: CONSTITUTIONAL: Denies fever or chills. HEENT: Denies blurred vision, vision changes, or eye pain. Denies hemoptysis CARDIOVASCULAR: Denies chest pain. Denies orthopnea. Denies PND. Denies palpitations RESPIRATORY: Denies shortness of breath. GASTROINTESTINAL: Denies abdominal pain. Denies nausea or vomiting. HEMATOLOGIC: Denies bleeding disorders. GENITOURINARY: Denies any blood in urine. SKIN: Denies pruitis. Denies rash. PHYSICAL EXAM: VITAL SIGNS: Reviewed. GENERAL: Well-developed in no acute distress. HEENT: Head is normocephalic. Pupils are equal, round. Sclerae anicteric. Mucous membranes of the mouth are moist. Neck supple. No JVD or thyromegaly LUNGS: Respirations even and unlabored. Lungs essentially clear to auscultation bilaterally. HEART: Regular rate and rhythm. S1 and S2 heard. ABDOMEN: Soft. Nondistended. Nontender. EXTREMITIES: Normal range of motion. No clubbing or cyanosis. Peripheral pulses intact. No lower extremity edema NEUROLOGIC: Awake and alert. Oriented x 3. ASSESSMENT: Chest pain with normal troponin, not typical of angina Coronary artery disease with previous stenting of the LAD and RCA Status post recent cardiac catheterization revealing intermediate lesion involving the mid RCA which was not flow-limiting by Doppler wire Known intermediate lesion involving ostial first diagonal branch Hypertension Hyperlipidemia Osteoarthritis Chronic back pain PLAN: An acute coronary and has been ruled out Chest pain does not appear anginal. Discussed possible inpatient workup vs outpt followup and patient agreeable to outpt followup. Consider other non cardiac workups such as GI source. Appears stable for discharge. Past Medical History Past Medical History: Chest Pain / Angina, Hypertension, Osteoarthritis (OA), Prostate Disorder, Thyroid Disorder Additional Past Medical History / Comment(s): 2013 [facility] dx, hx gout. insomnia, History of Any Multi-Drug Resistant Organisms: MRSA Date of last positivie culture/infection: 2011 MDRO Source:: rt foot Past Surgical History: Back Surgery, Heart Catheterization With Stent, Orthopedic Surgery Additional Past Surgical History / Comment(s): left knee arthroscopy, picc line insertion since removed for ABX for MRSA, one cardiac stent Past Anesthesia/Blood Transfusion Reactions: No Reported Reaction Date of Last Stent Placement:: 08/29/15 Past Psychological History: No Psychological Hx Reported Smoking Status: Never smoker Past Alcohol Use History: None Reported Past Drug Use History: None Reported - Past Family History Father Family Medical History: Cancer Additional Family Medical History / Comment(s): Father of lung cancer at age 76 yrs. Mother Family Medical History: Myocardial Infarction ([place]) Additional Family Medical History / Comment(s): . Brother(s) Family Medical History: Cancer Medications and Allergies Home Medications Medication Instructions Recorded Confirmed Type Tamsulosin [Flomax] 0.8 mg PO DAILY 06/15/21 04/16/23 History Ferrous Sulfate [Iron (65 MG 325 mg PO DAILY 02/24/23 04/16/23 History Elemental)] Testosterone Cypionate 200 mg IM Q14D 02/24/23 04/16/23 History [Depo-Testosterone] allopurinoL 300 mg PO DAILY PRN 02/24/23 04/16/23 History Acetaminophen Tab [Tylenol] 650 mg PO Q6HR PRN tab 02/26/23 04/16/23 Rx Aspirin 81 mg PO DAILY #30 tab 02/26/23 04/16/23 Rx Atorvastatin [Lipitor] 80 mg PO HS #30 tab 02/26/23 04/16/23 Rx Metoprolol Succinate (ER) [Toprol 50 mg PO DAILY #30 tab 02/26/23 04/16/23 Rx XL] Multivitamins, Thera [Multivitamin 1 tab PO DAILY 04/02/23 04/16/23 History (formulary)] Nitroglycerin Sl Tabs [Nitrostat] 0.4 mg SL Q5M PRN 04/02/23 04/16/23 History Levothyroxine Sodium [Synthroid] 175 mcg PO DAILY 04/16/23 04/16/23 History Valsartan 80 mg PO DAILY 04/16/23 04/16/23 History Omeprazole 20 mg PO BID #45 cap 04/18/23 Rx Allergies Allergy/AdvReac Type Severity Reaction Status Date / Time No Known Allergies Allergy Verified 04/01/23 15:45 Physical Exam Vitals: Vital Signs Temp Pulse Resp BP Pulse Ox 04/18/23 12:30 97.7 F 73 16 106/66 97 04/18/23 07:45 97.6 F 85 16 137/81 98 04/18/23 02:00 97.5 F L 79 16 118/76 98 Intake and Output 04/18/23 04/18/23 04/18/23 06:59 14:59 22:59 Intake Total 590 600 Balance 590 600 Intake: Oral 590 600 Other: Voiding Method Toilet # Voids 2 Results 04/16/23 22:45 04/18/23 05:58 Comprehensive Metabolic Panel 04/18/23 Range/Units 05:58 Sodium 133 L (135-145) mmol/L Potassium 4.8 (3.5-5.5) mmol/L Chloride 100 (96-109) mmol/L Carbon Dioxide 23.0 (21.6-31.8) mmol/L BUN 12.3 (9.0-27.0) mg/dL Creatinine 0.9 (0.6-1.5) mg/dL Glucose 97 (70-110) mg/dL Calcium 9.4 (8.7-10.3) mg/dL Intake and Output 04/18/23 04/18/23 04/18/23 06:59 14:59 22:59 Intake Total 590 600 Balance 590 600 Intake: Oral 590 600 Other: Voiding Method Toilet # Voids 2 04/16/23 22:45 04/18/23 05:58
--- NOTE | 2023-04-21 19:56 | P.DS ---
Providers Date of admission: 04/16/23 23:46 Attending physician: Meryl Hancock Consults: 04/17/23 10:52 Consult Physician Stat Consulting Provider: Demond Johnson Consult Reason/Comments: midsternal chest pain Do you want consulting provider notified?: Yes 04/17/23 13:06 Consult Physician Routine Consulting Provider: Rob Samuel Consult Reason/Comments: medical competency and ambien abuse Do you want consulting provider notified?: Yes Primary care physician: Twin Morales Hospital Course: Final Diagnosis -Chest pain not suggestive of ACS/anginal pain more likely epigastric discomfort improving with omeprazole. -Coronary artery disease with previous stenting of the LAD and RCA with recent cath revealing intermediate lesion of mid RCA which was not flow limiting by doppler wire, and had intermediate lesion involving the ostial first diagonal branch. -Hypertension resumed on metoprolol and valsartan recommending to continue holding hydrodiuril -Hyponatremia likely hypovolemic patient is being hydrated with normal saline sodium improving up to 130. Patient was taken off hydrodiuril prior admission unsure if it was stopped outpatient -Hyperlipidemia -Osteoarthritis -Chronic back pain continue on tylenol as needed -Insomnia on ambien outpatient with ambien abuse patient has been taking 3 ambien a day and continues to report insomnia. Recommending melatonin. -Hx of gout -Hypothyroidism Discharge Disposition Patient is stable for discharge home. Recommending to follow up with cardiology in 1 to 2 weeks. Patient is discharged on increased omeprazole to twice a day. Recommending to stay off hydrodiuril secondary to hyponatremia. Repeat labs in 2 to 3 days. Follow up with PCP Dr Twin Morales in 1 to 2 days. Patient has also been referred to Dr Shawnee Johnson GI services for further work up for the epigastric pain. Discussed with patient needs to stop using ambien. Hospital Course This is a 67 year old male with medical history of hypertension, coronary artery disease with prior cardiac stenting. Patient comes in with 3 day history of midsternal chest pain, non radiating. He was sent down from [place] where he was found to be hyponatremic as well as anxious and tremulous. He denies any shortness of breath. No fever or chills. No abdominal pain, no change in bowel habits. He denies any dizziness or lightheadedness, no palpitations. He does complain of insomnia states he has not slept in 3 days. He states he has been taking up to 3 ambien per day and has gone through his 90 day supply in the 30 days. He states the ambien did help his chest pain. He has had 2 admissions in the last 2 months with similar complaints. He was hospitalized from 04/01 to 04/03/2023 for chest pain. He was also hospitalized from 02/24 to 02/26/23 for chest pain. He underwent lexiscan stress test on 02/24 which was positive underwent cardiac catheterization 02/26 and found to have intermediate lesion involving the mid RCA lesion is not flow-limiting by doppler wire, intermediate lesion involving the ostial first diagonal branch. He was hyponatremic previous admission and was taken off his valsartan, enalapril and hydrodiuril. Patient is a poor historian with vague details concerning the chest pain this admission. He does admit to stressors regarding his home situation states a nephew recently moved in with him and has been selling all this things. Work up here reveals sodium level of 126. EKG showing sinus rhythm with frequent PVCs. Troponin level is negative. He states he has been taking the medications "in the bag." He has a bag of medications at bedside including meloxicam 7.5 mg, levothyroxine of 200 and 175 mcg dosages, as well as the valsartan and hydrodiuril. It is unclear if he followed up with cardiology and had been resumed on these medications outpatient. He is unable to answer that question. Admitted to the hospital with chest pain which is more likely epigastric pain. patient does endorse this "chest pain" happens shortly after eating. He has been started on omeprazole BID. He has been hydrated and recommended to stay of hydrodiuril. Sodium has improved to 133. TSH low at 0.017, T4 is normal range 2.19. Patients chest pain has resolved. He will be discharged with the above mentioned recommendations. Cardiology recommending to f.u outpatient. Please see medication reconciliation for a list of current medications. Thank you for allowing us to participate in the care of this patient. The impression and plan of care has been dictated by Lynnette Salomon, Nurse Practitioner as directed. Dr. Marlyn MD I have performed a history and physical examination and medical decision making of this patient, discussed the same with the dictator, and agree with the dictators assessment and plan as written, documented as a scribe. Based on total visit time, I have performed more than 50% of this visit. Patient Condition at Discharge: Stable Plan - Discharge Summary New Discharge Prescriptions: New Omeprazole 20 mg PO BID #45 cap Continue allopurinoL 300 mg PO DAILY PRN PRN Reason: Gout Flare Aspirin 81 mg PO DAILY #30 tab Nitroglycerin Sl Tabs [Nitrostat] 0.4 mg SL Q5M PRN PRN Reason: Chest Pain Valsartan 80 mg PO DAILY Tamsulosin [Flomax] 0.8 mg PO DAILY Ferrous Sulfate [Iron (65 MG Elemental)] 325 mg PO DAILY Testosterone Cypionate [Depo-Testosterone] 200 mg IM Q14D Atorvastatin [Lipitor] 80 mg PO HS #30 tab Metoprolol Succinate (ER) [Toprol XL] 50 mg PO DAILY #30 tab Acetaminophen Tab [Tylenol] 650 mg PO Q6HR PRN tab PRN Reason: Mild Pain Or Fever > 100.5 Multivitamins, Thera [Multivitamin (formulary)] 1 tab PO DAILY Levothyroxine Sodium [Synthroid] 175 mcg PO DAILY Discontinued Omeprazole [PriLOSEC] 20 mg PO DAILY Zolpidem [Ambien] 10 mg PO DIRECTED Baclofen [Lioresal] 5 mg PO BID PRN tab PRN Reason: Muscle Spasm Lactulose 20 gm PO DAILY PRN #150 ml PRN Reason: Constipation hydroCHLOROthiazide [Hydrodiuril] 25 mg PO DAILY Discharge Medication List Tamsulosin [Flomax] 0.8 mg PO DAILY 06/15/21 [History] Ferrous Sulfate [Iron (65 MG Elemental)] 325 mg PO DAILY 02/24/23 [History] Testosterone Cypionate [Depo-Testosterone] 200 mg IM Q14D 02/24/23 [History] allopurinoL 300 mg PO DAILY PRN 02/24/23 [History] Acetaminophen Tab [Tylenol] 650 mg PO Q6HR PRN tab 02/26/23 [Rx] Aspirin 81 mg PO DAILY #30 tab 02/26/23 [Rx] Atorvastatin [Lipitor] 80 mg PO HS #30 tab 02/26/23 [Rx] Metoprolol Succinate (ER) [Toprol XL] 50 mg PO DAILY #30 tab 02/26/23 [Rx] Multivitamins, Thera [Multivitamin (formulary)] 1 tab PO DAILY 04/02/23 [History] Nitroglycerin Sl Tabs [Nitrostat] 0.4 mg SL Q5M PRN 04/02/23 [History] Levothyroxine Sodium [Synthroid] 175 mcg PO DAILY 04/16/23 [History] Valsartan 80 mg PO DAILY 04/16/23 [History] Omeprazole 20 mg PO BID #45 cap 04/18/23 [Rx] Follow up Appointment(s)/Referral(s): Suman Keane MD [STAFF PHYSICIAN] - 05/01/23 2:45 pm Nadia Johnson MD [STAFF PHYSICIAN] - 1 Week ( Call office to make appt. Friday .Office closed at time of discharge. ) Anesthesia,Services [STAFF PHYSICIAN] - 1 Week ( Call office to make appt. Friday .Office closed at time of discharge. ) Twin Morales MD [Primary Care Provider] - 1-2 days (please call the office to schedule a follow up appointment) Ambulatory/Diagnostic Orders: Basic Metabolic Panel [LAB.AMB] Time Frame: 3 Days, Location: None Selected Patient Instructions/Handouts: Omeprazole (By mouth), GERD (Gastroesophageal Reflux Disease) (DC) Activity/Diet/Wound Care/Special Instructions: Discontinue ambien Please follow up with your advertiser in 1 to 2 weeks See your PCP in [address] Twin Morales regarding sleeping aid Recommend to see Dr. Shawnee Johnson with GI outpatient for the acid reflux Repeat labs in 2 to 3 days need to stay off the hydrodiuril Discharge/Stand Alone Forms: Who Do I Call? Discharge Disposition: HOME SELF-CARE
== END 2023-04-18 18:33 | disposition home or self-care (01) ==
LOC: EC 22:02 → 6NMEDSUR 23:46 → 5NMEDONC 04-17 12:33
PROVIDERS: ADMIT Hospitalist; ATTEND Hospitalist
DX: R07.2 Precordial pain (principal); R10.13 Epigastric pain; I25.10 Atherosclerotic heart disease of native coronary artery without angina pectoris; I10 Essential (primary) hypertension; E87.1 Hypo-osmolality and hyponatremia; E78.5 Hyperlipidemia, unspecified; M19.90 Unspecified osteoarthritis, unspecified site; G89.29 Other chronic pain; M54.9 Dorsalgia, unspecified; M10.9 Gout, unspecified; E03.9 Hypothyroidism, unspecified; F19.230 Other psychoactive substance dependence with withdrawal, uncomplicated; E07.9 Disorder of thyroid, unspecified; N42.9 Disorder of prostate, unspecified; A48.1 Legionnaires' disease; G47.00 Insomnia, unspecified; F13.10 Sedative, hypnotic or anxiolytic abuse, uncomplicated; I49.3 Ventricular premature depolarization; F43.20 Adjustment disorder, unspecified; Z63.9 Problem related to primary support group, unspecified; Z79.899 Other long term (current) drug therapy; Z79.890 Hormone replacement therapy; Z79.82 Long term (current) use of aspirin; Z86.14 Personal history of Methicillin resistant Staphylococcus aureus infection; Z95.5 Presence of coronary angioplasty implant and graft; Z80.1 Family history of malignant neoplasm of trachea, bronchus and lung; Z82.49 Family history of ischemic heart disease and other diseases of the circulatory system
CPT/HCPCS: 96376; 96361; 96374; 99285; 36415; 93005; 84439; 80053; 80048 ×2; 84443; 83690; 83735; 84484; 85025; G0378 ×3; J1650; C9113 ×2

== ENCOUNTER 2024-01-05 16:44 | Emergency (ER) | payer MEDICARE, OTHER ==
[2024-01-05 16:57] VITALS: TEMP 97.6
--- NOTE | 2024-01-05 17:29 | ED ---
Chest Pain HPI - General Chief Complaint: Chest Pain Stated Complaint: Chest/ abd pain Time Seen by Provider: 01/05/24 17:03 Source: patient Mode of arrival: ambulatory Limitations: no limitations - History of Present Illness Initial Comments: This patient is a 68-year-old man who presents with epigastric pain that he states reminds him of when he had pancreatitis previously. The pain started 3 days ago. He has decreased appetite and nausea. He states that he tried to drink some burners and it made the pain worse. He states that prior to that he had eaten a boiled egg and that was okay. The patient denies jefferson chest pain. No dyspnea, diaphoresis, palpitations, syncope. Patient had required previous angioplasty but states that the pain is not similar to that. MD Complaint: chest pain Onset/Timin -: days(s) Onset: during rest Pain Location: epigastric Pain Radiation: none Severity: moderate Quality: aching Consistency: constant Improves With: nothing Worsens With: eating Anginal Symptoms: nausea Treatments Prior to Arrival: none - Related Data Home Medications Medication Instructions Recorded Confirmed Tamsulosin [Flomax] 0.8 mg PO DAILY 06/15/21 01/05/24 Ferrous Sulfate [Iron (65 MG 325 mg PO DAILY 02/24/23 01/05/24 Elemental)] Testosterone Cypionate 200 mg IM Q14D 02/24/23 01/05/24 [Depo-Testosterone] allopurinoL 300 mg PO DAILY 02/24/23 01/05/24 Levothyroxine Sodium [Synthroid] 175 mcg PO DAILY 04/16/23 01/05/24 Valsartan 80 mg PO DAILY 04/16/23 01/05/24 Aspirin EC [Ecotrin] 325 mg PO DAILY 01/05/24 01/05/24 Baclofen 5 mg PO BID 01/05/24 01/05/24 Calcium Carbonate [Tums] 500 - 1,000 mg PO QID PRN 01/05/24 01/05/24 Enalapril [Vasotec] 20 mg PO DAILY 01/05/24 01/05/24 Ezetimibe [Zetia] 10 mg PO DAILY 01/05/24 01/05/24 Famotidine [Pepcid] 20 mg PO BID 01/05/24 01/05/24 Omeprazole 20 mg PO DAILY 01/05/24 01/05/24 Zolpidem [Ambien] 10 mg PO HS 01/05/24 01/05/24 amLODIPine [Norvasc] 10 mg PO DAILY 01/05/24 01/05/24 Previous Rx's Medication Instructions Recorded Acetaminophen Tab [Tylenol] 650 mg PO Q6HR PRN tab 02/26/23 Atorvastatin [Lipitor] 80 mg PO HS #30 tab 02/26/23 Metoprolol Succinate (ER) [Toprol 50 mg PO DAILY #30 tab 02/26/23 XL] Famotidine [Pepcid] 20 mg PO BID #14 tablet 01/05/24 HYDROcodone/APAP 5-325MG [Fifty Six 1 tab PO Q4HR PRN 3 Days #18 tab 01/05/24 5-325] Ondansetron Odt [Zofran ODT] 4 mg PO Q8HR PRN #10 tab 01/05/24 Allergies Allergy/AdvReac Type Severity Reaction Status Date / Time No Known Allergies Allergy Verified 01/05/24 18:32 Review of Systems ROS Statement: Those systems with pertinent positive or pertinent negative responses have been documented in the HPI. ROS Other: All systems not noted in ROS Statement are negative. Constitutional: Denies: fever, chills, weakness Respiratory: Denies: cough, dyspnea Cardiovascular: Denies: chest pain, palpitations, dyspnea on exertion, orthopnea, edema, syncope Gastrointestinal: Reports: abdominal pain, nausea, diarrhea. Denies: vomiting, melena, hematochezia Genitourinary: Denies: dysuria, hematuria Musculoskeletal: Denies: back pain Skin: Denies: rash Neurological: Denies: headache, weakness, numbness EKG Findings - EKG Results: EKG: interpreted by ERMD, sinus rhythm (Sinus with occasional PVC) EKG shows: tachycardia (Rate 101 bpm) - Blocks, Brandt, Hypertrophy, ST Abn: AV and intraventricular conduction: left anterior fascicular block QRS axis and voltage: pulmonary disease Past Medical History Past Medical History: Chest Pain / Angina, Hypertension, Osteoarthritis (OA), Prostate Disorder, Thyroid Disorder Additional Past Medical History / Comment(s): 2013 [facility] dx, hx gout. insomnia, History of Any Multi-Drug Resistant Organisms: MRSA Date of last positivie culture/infection: 2011 MDRO Source:: rt foot Past Surgical History: Back Surgery, Heart Catheterization With Stent, Orthopedic Surgery Additional Past Surgical History / Comment(s): left knee arthroscopy, picc line insertion since removed for ABX for MRSA, one cardiac stent Past Anesthesia/Blood Transfusion Reactions: No Reported Reaction Date of Last Stent Placement:: 08/29/15 Past Psychological History: No Psychological Hx Reported Smoking Status: Never smoker Past Alcohol Use History: None Reported Past Drug Use History: None Reported - Past Family History Father Family Medical History: Cancer Additional Family Medical History / Comment(s): Father of lung cancer at age 76 yrs. Mother Family Medical History: Myocardial Infarction ([place]) Additional Family Medical History / Comment(s): . Brother(s) Family Medical History: Cancer General Exam Limitations: no limitations General appearance: alert, in no apparent distress Head exam: Present: atraumatic, normocephalic Eye exam: Present: normal appearance. Absent: scleral icterus, conjunctival injection ENT exam: Present: normal oropharynx Neck exam: Present: normal inspection Respiratory exam: Present: normal lung sounds bilaterally. Absent: respiratory distress, wheezes, rales, rhonchi, stridor, accessory muscle use Cardiovascular Exam: Present: regular rate, normal rhythm, normal heart sounds. Absent: systolic murmur, diastolic murmur, rubs, gallop GI/Abdominal exam: Present: soft. Absent: distended, tenderness, guarding, rebound, rigid, mass Extremities exam: Present: normal inspection, normal capillary refill. Absent: pedal edema, calf tenderness Back exam: Present: normal inspection. Absent: CVA tenderness (R), CVA tenderness (L) Neurological exam: Present: alert Skin exam: Present: warm, dry, intact, normal color. Absent: rash Course Vital Signs 01/05/24 01/05/24 01/05/24 16:50 19:06 21:05 Temperature 97.6 F Pulse Rate 102 H 85 86 Respiratory 18 16 16 Rate Blood Pressure 106/66 111/67 141/95 O2 Sat by Pulse 98 95 98 Oximetry Chest Pain MDM - MDM The patient had chest x-ray that I interpreted as negative for acute infiltrate, pneumothorax, congestive heart failure Was pt. sent in by a medical professional or institution (, PA, TANKER SERVICE ATTENDANT, urgent care, hospital, or detention...) When possible be specific @ -[No] Did you speak to anyone other than the patient for history (EMS, parent, family, police, friend...)? What history was obtained from this source @ -[No] Did you review nursing and triage notes (agree or disagree)? Why? @ -[I reviewed and agree with nursing and triage notes] Were old charts reviewed (outside hosp., previous admission, EMS record, old EKG, old radiological studies, urgent care reports/EKG's, detention records)? Report findings @ -[No old charts were reviewed] Differential Diagnosis (chest pain, altered mental status, abdominal pain women, abdominal pain men, vaginal bleeding, weakness, fever, dyspnea, syncope, headache, dizziness, GI bleed, back pain, seizure, CVA, palpatations, mental health, musculoskeletal)? @ -[Differential Abdominal Pain Men: Appendicitis, cholecystitis, diverticulosis, ischemic bowel, pancreatitis, hepatitis, UTI, gastroenteritis, AAA, incarcerated hernia, bowel obstruction, constipation, inflammatory bowel, hepatitis, peptic ulcer disease, splenic infarction, perforated viscus, testicular torsion, this is not meant to be an all-inclusive list EKG interpreted by me (3pts min.). @ -[I interpreted as above] X-rays interpreted by me (1pt min.). @ -[I interpreted as above CT interpreted by me (1pt min.). @ -[None done] U/S interpreted by me (1pt. min.). @ -[None done] What testing was considered but not performed or refused? (CT, X-rays, U/S, labs)? Why? @ -[None] What meds were considered but not given or refused? Why? @ -[None] Did you discuss the management of the patient with other professionals (professionals i.e. , PA, TANKER SERVICE ATTENDANT, lab, RT, psych nurse, clinical social worker, esthetics instructor, teacher, front desk officer, correctional casework specialist)? Give summary @ -[No] Was smoking cessation discussed for >3mins.? @ -[No] Was critical care preformed (if so, how long)? @ -[No] Were there social determinants of health that impacted care today? How? (Homelessness, low income, unemployed, alcoholism, drug addiction, transportation, low edu. Level, literacy, decrease access to med. care, longterm, rehab)? @ -[No] Was there de-escalation of care discussed even if they declined (Discuss DNR or withdrawal of care, Hospice)? DNR status @ -[No] What co-morbidities impacted this encounter? (DM, HTN, Smoking, COPD, CAD, Cancer, CVA, ARF, Chemo, Hep., AIDS, mental health diagnosis, sleep apnea, morbid obesity)? @ -[None] Was patient admitted / discharged? Hospital course, mention meds given and route, prescriptions, significant lab abnormalities, going to OR and other pertinent info. @ -[Patient is 68-year-old man here with abdominal pain similar to previous pancreatitis. The patient's workup does indicate degree of pancreatitis. His symptoms were improved with medication here and at this point appears stable to have further outpatient evaluation and treatment. We discussed the appropriate further care and follow-up as well as return parameters. Undiagnosed new problem with uncertain prognosis? @ -[No] Drug Therapy requiring intensive monitoring for toxicity (Heparin, Nitro, Insulin, Cardizem)? @ -[No] Were any procedures done? @ -[No] Diagnosis/symptom? @ -[Acute abdominal pain Acute pancreatitis Acute, or Chronic, or Acute on Chronic? @ -[Acute Uncomplicated (without systemic symptoms) or Complicated (systemic symptoms)? @ -Uncomplicated Side effects of treatment? @ -[No] Exacerbation, Progression, or Severe Exacerbation? @ -[No] Poses a threat to life or bodily function? How? (Chest pain, [place], [place], pneumonia, PE, COPD, DKA, ARF, appy, cholecystitis, CVA, Diverticulitis, Homicidal, Suicidal, threat to staff... and all critical care pts) @ -[Requires further evaluation which will be as outpatient in the near future Disposition Clinical Impression: Pancreatitis Disposition: HOME SELF-CARE Condition: Good Instructions (If sedation given, give patient instructions): Pancreatitis (ED) Prescriptions: HYDROcodone/APAP 5-325MG [Fifty Six 5-325] 1 tab PO Q4HR PRN 3 Days #18 tab PRN Reason: Pain Famotidine [Pepcid] 20 mg PO BID #14 tablet Ondansetron Odt [Zofran ODT] 4 mg PO Q8HR PRN #10 tab PRN Reason: Nausea Is patient prescribed a controlled substance at d/c from ED?: Yes Referrals: Twin Morales MD [Primary Care Provider] - 1-2 days
[2024-01-05 18:12] LABS: Basophils # (A) 0.1 k/uL (0-0.2); Basophils % (A) 1 %; Eosinophils # (A) 0.1 k/uL (0-0.7); Eosinophils % (A) 1 %; HCT 41.6 % (39.0-53.0); HGB 13.7 gm/dL (13.0-17.5); Lymphocytes # (A) 2.5 k/uL (1.0-4.8); Lymphocytes % (A) 27 %; MCH 32.8 pg (25.0-35.0); MCHC 32.9 g/dL (31.0-37.0); MCV 99.9 fL (80.0-100.0); Mean Platelet Volume 6.8; Monocytes # (A) 0.8 k/uL (0-1.0); Monocytes % (A) 8 %; Neutrophils # (A) 5.4 k/uL (1.3-7.7); Neutrophils % (A) 59 %; Platelet Count 257 k/uL (150-450); RBC 4.17 m/uL (4.30-5.90); RDW 13.6 % (11.5-15.5); WBC 9.2 k/uL (3.8-10.6)
--- NOTE | 2024-01-05 18:16 | XR ---
EXAMINATION TYPE: XR chest 2V DATE OF EXAM: 01/05/2024 COMPARISON: 04/01/2023 INDICATION: Chest pain TECHNIQUE: Frontal and lateral views of the chest are obtained. FINDINGS: The heart size is normal. The pulmonary vasculature is normal. The lungs are clear. IMPRESSION: 1. No acute pulmonary process. [facility], , 01/05/2024 6:13 PM
[2024-01-05 18:25] LABS: ALT 32 U/L (4-49); AST 34 U/L (17-59); African American GFR (CKD) 71 (>60 ml/min/1.73 sqM); Albumin 4.6 g/dL (3.5-5.0); Alkaline Phosphatase 84 U/L (38-126); Amylase 68 U/L (30-110); Anion Gap 9 mmol/L; Blood Urea Nitrogen 9 mg/dL (9-20); Calcium 9.7 mg/dL (8.4-10.2); Carbon Dioxide 24 mmol/L (22-30); Chloride 96 mmol/L (98-107); Glucose 114 mg/dL (74-99); Lipase 419 U/L (23-300); Non-African American GFR(CKD) 62 (>60 ml/min/1.73 sqM); Potassium 4.1 mmol/L (3.5-5.1); Sodium 129 mmol/L (137-145); Total Bilirubin 0.7 mg/dL (0.2-1.3); Total Protein 7.8 g/dL (6.3-8.2)
[2024-01-05 18:28] LABS: Partial Thromboplastin Time 28.7 sec (22.0-30.0); Prothrombin Time 10.6 sec (10.0-12.5)
[2024-01-05] MEDS: SODIUM CHLORIDE 0.9% 1,000 ML IV ONE (19:02)
[2024-01-05] MEDS: MORPHINE SULFATE 4 MG/ML SYRINGE IV STA (19:03)
[2024-01-05] MEDS: ONDANSETRON 4 MG/2 ML VIAL IVP STA ×2 (19:03→20:43)
[2024-01-05 19:08] VITALS: RESP 16
[2024-01-05] MEDS: PANTOPRAZOLE 40 MG/10 ML VIAL IVP STA (20:42)
[2024-01-05 21:06] VITALS: BP 141/95; PULSE 86
== END 2024-01-05 21:08 | disposition home or self-care (01) ==
LOC: EC 16:44
DX: K85.90 Acute pancreatitis without necrosis or infection, unspecified (principal)
CPT/HCPCS: 36415; 71046; 80053; 82150; 83690; 83735; 84484; 85025; 85610; 85730; 93005; 96361; 96374; 96376; 99285